=== PATIENT | female | born 1935 | race Caucasian/White ===

== ENCOUNTER 2024-05-08 19:13 | Inpatient (IN) | payer OTHER, SELFPAY ==
[2024-05-08] VITALS (7 sets, daily range): BP systolic 123–177; BP diastolic 85–106; BMI 18.8; BMI 17.4
[2024-05-08 16:51] LABS: % Basophils 0.5 % (0-2); % Eosinophils 0.2 % (0-6); % Immature Granulocytes 0.2 % (0-0.5); % Lymphocytes 13.4 % (20.5-51.1); % Monocytes 6.9 % (1.7-9.3); % Neutrophils 78.8 % (42.2-75.2); Absolute Lymphocytes 1.2 10^3/uL (1.2-3.4); Absolute Monocytes 0.6 10^3/uL (0.1-0.6); Absolute Neutrophils 6.9 10^3/uL (1.4-6.5); Hematocrit 37.7 % (37.0-47.0); Hemoglobin 12.2 g/dL (12.0-16.0); Mean Corp Hgb Conc. 32.4 g/dL (33.0-37.0); Mean Corpuscular Hgb 32.6 pg (27.0-31.0); Mean Corpuscular Volume 100.8 fL (81.0-99.0); Mean Platelet Volume 10.3 fL (7.4-10.4); Nucleated Red Blood Cells % 0 %; Platelet Count 301 10^3/uL (130-400); Red Blood Cell Count 3.74 10^6/uL (4.20-5.40); Red Cell Dist. Width 13.4 % (11.5-14.5); White Blood Cell Count 8.8 10^3/uL (4.8-10.8)
[2024-05-08 17:08] LABS: ALT (SGPT) 30 U/L (0-35); AST (SGOT) 38 U/L (14-36); Albumin 3.3 g/dl (3.5-5.0); Alkaline Phosphatase 475 U/L (38-126); Blood Urea Nitrogen 26 mg/dl (7-17); Calcium 8.7 mg/dl (8.4-10.2); Carbon Dioxide 28 mmol/L (22-30); Chloride 102 mmol/L (98-107); Estimated Creatinine Clearance 27 ml/min; Glucose 181 mg/dl (70-99); Potassium 3.6 mmol/L (3.5-5.1); Sodium 139 mmol/L (135-145); Total Bilirubin 1.3 mg/dl (0.2-1.3); Total Protein 7.1 g/dl (6.3-8.2); eGFR 48.94
--- NOTE | 2024-05-08 17:21 | ED.GENMED ---
History of Present Illness
<Nadia Connor PA-C - Last Filed: 05/08/24 19:20>
General
Chief Complaint: Abdominal Symptoms
Source: patient and family (Daughter at bedside)
Exam Limitations: none
Time Seen by Provider: 05/08/24 16:36
Nursing documentation reviewed up to this point in time: agreed with
History of Present Illness
History of Present Illness:
Patient is a 88-year-old female with history hypertension presenting to the emergency department for evaluation of exertional shortness of breath and lower leg swelling. Patient reports that over the past 2 weeks she has been very short of breath
even walking a few steps. She noticed that her feet have become swollen over the past few days. Patient denies any associated chest pain.
In addition�patient does report that she has been dealing with intermittent nausea for the past year. This is never accompanied by any vomiting, fever, abdominal pain. It seems worse in the morning when she wakes up and improves slowly throughout
the day. She has not noticed any correlation to eating.
Patient states that she felt very weak and lethargic today prompting her visit to the emergency department.
Patient denies any cough, back pain, urinary symptoms or other infectious symptoms.
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 She does have a pretty significant family history of congestive heart failure.
Review of Systems
<Nadia Connor PA-C - Last Filed: 05/08/24 19:20>
Review of Systems
Allergies reviewed?: Yes
All Other Systems: ROS reviewed and negative except as documented in HPI and ROS
Phy Exam
<Nadia Connor PA-C - Last Filed: 05/08/24 19:20>
Physical Exam
Physical Exam:
Vitals: Hypertensive, otherwise vital signs stable. Afebrile
General: Patient is well appearing, no acute distress
Skin: Warm and dry, no rashes or lesions. Scattered excoriations on bilateral lower legs
Head: Normocephalic, atraumatic
Eyes: Sclera nonicteric. EOMs intact. No nystagmus.
Throat: Protecting airway
Neck: Normal ROM, no cervical spine tenderness, no meningismus. No JVD
Cardiac: Regular rate and rhythm, no murmurs.
Pulm: Normal respiratory effort. Fine crackles at bases. No wheezing.
Abdomen: Abdomen soft. No abdominal tenderness. Negative Lama sign.
Extremities: 1+ pitting edema of bilateral feet. Palpable DP and PT pulses bilaterally.
Neuro: AAOx3. Grossly intact.
Psychiatric: Normal affect.
Course
<Nadia Connor PA-C - Last Filed: 05/08/24 19:20>
Orders/Labs/Results
Orders:
Orders
05/08/24 15:55
EKG [Electrocardiogram (*1)] Urgent
Reason for Study: Abdominal Pain
EKG- Treatment ONCE
05/08/24 16:42
CMP [Comprehensive Metabolic Panel] Urgent
Complete Blood Count/With Diff Urgent
NT-proBNP Urgent
Comment: ADD ON
Troponin I Urgent
05/08/24 17:20
Urinalysis Reflex To Culture Urgent
CR Chest - 2 Views Urgent
Comment:
Reason For Exam: exertional shortness of breath
05/08/24 17:35
Add On- LAB Urgent
Tests Added?: pro BNP
05/08/24 18:34
Furosemide [Lasix] 40 mg IV NOW STA
05/08/24 18:57
Admit/Transfer Patient As Directed
Co-Sign Provider:
Level of Care: Inpatient admission
Assign to:: Telemetry
Physician / Group: kb
Diagnosis: chf, afib
Reason for Telemetry: Arrhythmia
Date to Stop Telemetry: 05/11/24
Time to Stop Telemetry: 11:00
Reason for Hospitalization: chf, afib
Expected length of stay greater than two midnights?: Yes
ELOS- Estimated Length of Stay in days: 2
I certify the patient meets the requirements for IP care: Yes
Code Status As Directed
Resuscitation Status: Full Code
PRN Pain Medication Management As Directed
May give lesser potent ordered pain med per pt: Yes
preference::
Protocol:: Medication orders for pain may be administered in a
manner that supports deferring to patient preference
when the pt is:
- Requesting an ordered lesser potent pain medication.
Least to most potent pain medications are defined
as: acetaminophen < NSAID < tramadol < opioids
(morphine, oxycodone, hydromorphone).
- Requesting a lesser dose of the same medication IF
ORDERED.
- Requesting a less intrusive route of administration
if both routes are prescribed by the provider (PO <
IV).
05/08/24 18:58
Apixaban [Eliquis] 5 mg PO BID STA
05/08/24 19:45
Electrocardiogram (*1) Urgent
Reason for Study: Shortness of Breath
EKG- Treatment ONCE
Troponin I Urgent
05/11/24 11:00
DC Protocol for Telemetry ONCE
Abnormal Lab Results
05/08/24
16:42
RBC 3.74 L 10^6/uL
(4.20-5.40)
MCV 100.8 H fL
(81.0-99.0)
MCH 32.6 H pg
(27.0-31.0)
MCHC 32.4 L g/dL
(33.0-37.0)
Absolute Neuts (auto) 6.9 H 10^3/uL
(1.4-6.5)
Neutrophils % 78.8 H %
(42.2-75.2)
Lymphocytes % 13.4 L %
(20.5-51.1)
BUN 26 H mg/dl
(7-17)
Creatinine 1.1 H mg/dL
(0.6-1.0)
Glucose 181 H mg/dl
(70-99)
AST 38 H U/L
(14-36)
Alkaline Phosphatase 475 H U/L
(38-126)
Troponin I 0.038 H* ng/ml
Albumin 3.3 L g/dl
(3.5-5.0)
05/08/24 16:42
05/08/24 16:42
Vital Signs
Initial and Last Documented VS:
Initial Vital Signs
Temp Pulse Resp BP Pulse Ox
98.3 F 74 16 123/93 97
05/08/24 15:51 05/08/24 15:51 05/08/24 15:51 05/08/24 15:51 05/08/24 15:51
Last Documented Vital Signs
Temp Pulse Resp BP Pulse Ox
98.3 F 82 20 157/95 97
05/08/24 15:51 05/08/24 18:49 05/08/24 18:49 05/08/24 18:38 05/08/24 18:49
<Gregory Chavez, DO - Last Filed: 05/08/24 19:19>
Orders/Labs/Results
Orders:
Orders
05/08/24 15:55
EKG [Electrocardiogram (*1)] Urgent
Reason for Study: Abdominal Pain
EKG- Treatment ONCE
05/08/24 16:42
CMP [Comprehensive Metabolic Panel] Urgent
Complete Blood Count/With Diff Urgent
NT-proBNP Urgent
Comment: ADD ON
Troponin I Urgent
05/08/24 17:20
Urinalysis Reflex To Culture Urgent
CR Chest - 2 Views Urgent
Comment:
Reason For Exam: exertional shortness of breath
05/08/24 17:35
Add On- LAB Urgent
Tests Added?: pro BNP
05/08/24 18:34
Furosemide [Lasix] 40 mg IV NOW STA
05/08/24 18:57
Admit/Transfer Patient As Directed
Co-Sign Provider:
Level of Care: Inpatient admission
Assign to:: Telemetry
Physician / Group: kb
Diagnosis: chf, afib
Reason for Telemetry: Arrhythmia
Date to Stop Telemetry: 05/11/24
Time to Stop Telemetry: 11:00
Reason for Hospitalization: chf, afib
Expected length of stay greater than two midnights?: Yes
ELOS- Estimated Length of Stay in days: 2
I certify the patient meets the requirements for IP care: Yes
Code Status As Directed
Resuscitation Status: Full Code
PRN Pain Medication Management As Directed
May give lesser potent ordered pain med per pt: Yes
preference::
Protocol:: Medication orders for pain may be administered in a
manner that supports deferring to patient preference
when the pt is:
- Requesting an ordered lesser potent pain medication.
Least to most potent pain medications are defined
as: acetaminophen < NSAID < tramadol < opioids
(morphine, oxycodone, hydromorphone).
- Requesting a lesser dose of the same medication IF
ORDERED.
- Requesting a less intrusive route of administration
if both routes are prescribed by the provider (PO <
IV).
05/08/24 18:58
Apixaban [Eliquis] 5 mg PO BID STA
05/08/24 19:45
Electrocardiogram (*1) Urgent
Reason for Study: Shortness of Breath
EKG- Treatment ONCE
Troponin I Urgent
05/11/24 11:00
DC Protocol for Telemetry ONCE
Abnormal Lab Results
05/08/24
16:42
RBC 3.74 L 10^6/uL
(4.20-5.40)
MCV 100.8 H fL
(81.0-99.0)
MCH 32.6 H pg
(27.0-31.0)
MCHC 32.4 L g/dL
(33.0-37.0)
Absolute Neuts (auto) 6.9 H 10^3/uL
(1.4-6.5)
Neutrophils % 78.8 H %
(42.2-75.2)
Lymphocytes % 13.4 L %
(20.5-51.1)
BUN 26 H mg/dl
(7-17)
Creatinine 1.1 H mg/dL
(0.6-1.0)
Glucose 181 H mg/dl
(70-99)
AST 38 H U/L
(14-36)
Alkaline Phosphatase 475 H U/L
(38-126)
Troponin I 0.038 H* ng/ml
Albumin 3.3 L g/dl
(3.5-5.0)
05/08/24 16:42
05/08/24 16:42
Vital Signs
Initial and Last Documented VS:
Initial Vital Signs
Temp Pulse Resp BP Pulse Ox
98.3 F 74 16 123/93 97
05/08/24 15:51 05/08/24 15:51 05/08/24 15:51 05/08/24 15:51 05/08/24 15:51
Last Documented Vital Signs
Temp Pulse Resp BP Pulse Ox
98.3 F 82 20 157/95 97
05/08/24 15:51 05/08/24 18:49 05/08/24 18:49 05/08/24 18:38 05/08/24 18:49
<Nadia Connor PA-C - Last Filed: 05/08/24 19:20>
MDM/Problems Addressed
Differential Diagnosis Includes:
Not limited to: New onset CHF, dependent edema, ACS, biliary colic, medication side effect, CKD, UTI, etc.
MDM/Problems Addressed:
88-year-old female with history as documented presenting with exertional dyspnea and lower extremity swelling. No chest pain. She does have intermittent nausea over the past year although currently asymptomatic. No cough, fever, or other
infectious symptoms. Patient's vital signs are stable. She is not hypoxic. Physical exam as above. Patient well-appearing, in no apparent distress. Heart irregular rate, regular rhythm. There are fine crackles at lung bases bilaterally without
wheeze. She is saturating 97% on room air. Abdomen is soft and nontender. Negative Lama sign. She does have 1+ pitting edema bilateral lower extremities. Palpable DP pulses bilaterally. Patient does appear to be in a rate controlled atrial
fibrillation rhythm which is new for patient. Concern for possible new onset CHF. Will obtain labs, troponin, BNP. Will check chest x-ray. Unknown exact etiology for nausea although low suspicion for acute infectious process given benign
abdominal exam, no leukocytosis, patient is afebrile. Will continue to monitor.
Chronic conditions affecting care:
Hypertension
Acute Exacerbation and/or Progression of Chronic Illness:
Acutely hypertensive
<Nadia Connor PA-C - Last Filed: 05/08/24 19:20>
*Radiology
Radiology exam reviewed: preliminary read by ED provider (Mild pulmonary edema) and radiology read reviewed (Mild to moderate pulmonary edema and small bilateral pleural effusion)
*Pulse Oximetry
Patient hypoxic: no
*EKG
Interpreted by ED Provider?: Yes
EKG Intrepretation Date: 05/08/24
Interpretation: abnormal
Comparison EKG: no comparison EKG present
Heart Rate: 77
Rate: normal
Rhythm: a-fib
[place]: left axis deviation
Interval: normal QT interval
QRS Pattern: right bundle branch block
Ischemia: non-specific ST changes
*Refinery Operator Crude Unit Interpretation
Rate: normal
Interpretation: abnormal
Heart Rate: 80
Rhythm: a-fib
*Critical Care Note
Total Time (30-74mins, 75-104mins- exclusive of procedures): Not Applicable
<Nadia Connor PA-C - Last Filed: 05/08/24 19:20>
Patient Management
Discussion with other providers: Hospitalist
Escalation/DeEscalation of care consider admission/obs:
Admit for IV diuresis, cardiac echo, cardiology consult
<Nadia Connor PA-C - Last Filed: 05/08/24 19:20>
Update Note
Update Note:
Update: Labs reviewed. [place] [address]. Initial troponin is elevated to 0.038 which I suspect to be secondary to fluid overload�new onset A-fib. Low suspicion for ACS at this time. Will trend troponin. Chest
x-ray does show mild to moderate pulmonary edema with bilateral small pleural effusions. Findings consistent with new onset CHF. Will give 40 mg IV Lasix. Given new onset CHF along with new onset atrial fibrillation�patient will require admission
for IV diuresis, cardiac consult, further monitoring. Discussed with patient and daughter. Patient seen by attending physician. Patient agreeable to admission and accepted to hospital service in stable condition
ED Attending Note
<Nadia Connor PA-C - Last Filed: 05/08/24 19:20>
-
Portions of this chart may have been created with voice recognition software.� Occasional wrong word or��sound alike� substitutions may have occurred due to the inherent limitations of voice recognition software.
<Gregory Chavez DO - Last Filed: 05/08/24 19:19>
ED Attending Note
Patient seen and examined by attending physician: Yes
I performed the substantive portion of visit, reviewed & personally made and approve the management plan that is documented in note by myself or ANALISA.: Yes
ED Attending Note:
I evaluated patient at bedside patient she has bibasilar rales. She came in due to shortness of breath however currently is somewhat vague about the symptoms. Although she seemed to want a go home, she ultimately agreed to stay in the hospital as
she has new onset A-fib, new onset heart failure. She was given IV diuretic
Discharge Plan
Departure
Patient Disposition: Admit
Date of Disposition: 05/08/24
Time of Disposition: 18:35
Presentation/result/management discussed w/ accepting MD/DO: Hospitalist
Discharge Problem:
New onset of congestive heart failure, Exertional dyspnea, Atrial fibrillation, new onset
Referrals:
Julia Carpio CRNP [Family Provider] -
Discharge Date and Time
Print Language: FAROESE
[2024-05-08 17:22] LABS: Troponin I 0.038 ng/ml
[2024-05-08 18:35] LABS: NT-proBNP 20600 pg/ml
[2024-05-08] MEDS: LASIX 40 MG IV (18:38)
--- NOTE | 2024-05-08 19:00 | HPS.HSE ---
Family Physician
-
Family Physician: Julia Carpio
Chief Complaint
-
shortness of breath
History of Present Illness
88-year-old female past medical history of hypertension presenting to the emergency room with shortness of breath with exertion and lower extremity swelling. Over the past week she has been very short of breath even with a few steps. She notes
that her feet become swollen over the past few days. She denies chest pain. Denies dizziness or palpitations. She has increased lower extremity edema. 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
She has been having ongoing for the past year. She denies any vomiting or abdominal pain. This is worse in the morning when she wakes up and improves slowly throughout the day. She denies any correlation with eating. She has lost 50 pounds in
the past year. She denies change in bowel movements or blood in the stool.
She smokes 1 pack of cigarettes per day. She denies alcohol.
Multiple family members on both sides with heart disease.
Patient recently was found to have right shoulder fracture. He has seen orthopedics who recommended conservative treatment.
Medical History
Past Medical History
Past Medical History: Reports Other (hypertension )
Past Surgical History: Reports None
Social History
Tobacco: Smoker
Alcohol: None
Drug: None
Family History
Family History: Not pertinent
Allergies / Home Medications
Allergies reflects when Allergies were last updated in [facility].
Home Medications with original date entered in [facility]
Allergy/Medication List:
Allergies
Allergy/AdvReac Type Severity Reaction Status Date / Time
No Known Allergies Allergy Unverified 05/08/24 15:51
Review of Systems
-
History Source: Patient
A 12 point ROS was completed and negative except as noted: Yes
Constitutional: Reports No Symptoms
EENT: Reports No Symptoms
Respiratory: Reports See HPI
Cardiac: Reports See HPI
Abdomen/GI: Reports No Symptoms
: Reports No Symptoms
Musculoskeletal: Reports No Symptoms
Skin: Reports No Symptoms
Neurological: Reports No Symptoms
Endocrine: Reports No Symptoms
Hematologic/Lymphatic: Reports No Symptoms
Psych: Reports No Symptoms
Physical Exam
Vital Signs
Vital Signs
Temp Pulse Resp BP Pulse Ox
98.3 F 82 20 157/95 97
05/08/24 15:51 05/08/24 18:49 05/08/24 18:49 05/08/24 18:38 05/08/24 18:49
Physical Exam
General: Well Developed, Well Nourished and No Apparent Distress
HEENT: NormoCephalic, Moist mucous membranes and Atraumatic
Respiratory: Clear
Cardiac: S1/S2, Regular Rhythm and Peripheral Edema; No Murmur or Rub
GI: Soft, Non Tender, Non Distended and Normal Bowel Sounds; No Organomegaly
Rectal: Deferred by Provider
Musculoskeletal: No Clubbing, No Cyanosis and No Edema
Skin: No Rash
Neuro: Nonfocal/grossly intact
Laboratory Results
-
05/08/24 16:42
05/08/24 16:42
Laboratory Results
Total Bilirubin 1.3 mg/dl (0.2-1.3) 05/08/24 16:42
AST 38 U/L (14-36) H 05/08/24 16:42
ALT 30 U/L (0-35) 05/08/24 16:42
Alkaline Phosphatase 475 U/L (38-126) H 05/08/24 16:42
Troponin I 0.038 ng/ml H* 05/08/24 16:42
Data Reviewed
-
Lab Data: Labs Reviewed by me
Old Records: Reviewed
Impression/Plan
-
IMPRESSION:
PLAN:
# Acute CHF exacerbation
-Chest x-ray shows mild to moderate pulmonary interstitial edema with small bilateral pleural effusions
-Cardiac BNP 20,000
-Check I's and O's, daily weights
-Lasix 40 IV daily
-Check echo
-Cardiology consult
# New onset atrial fibrillation rate controlled
-[id number] score of 4
-Check TSH
-Start Eliquis
# Nonischemic myocardial injury secondary to CHF/A-fib
-EKG shows sinus rhythm with previous atrial complexes, left axis deviation, right bundle branch block
-trend troponin
# NILS versus CKD
-Monitor renal function with diuresis
# Chronic nausea with weight loss
-Concern for GI malignancy
-Outpatient follow-up with GI
# Recent right shoulder fracture
-Ortho following, conservative treatment
Active smoker
Essential hypertension
-Continue hydrochlorothiazide
Full code
DVT prophylaxis�Eliquis
Cardiac diet
[2024-05-08] MEDS: ELIQUIS 5 MG PO (19:28)
[2024-05-08 20:05] LABS: Troponin I 0.048 ng/ml
[2024-05-08] MEDS: MORPHINE SULFATE 0.5 MG IV (21:26)
[2024-05-08] MEDS: LIDOCAINE 4% PATCH 1 PATCH TOPICAL (21:27)
[2024-05-08 22:44] LABS: Urine Albumin 1+ (Neg - Trace); Urine Bilirubin Negative (Negative); Urine Character Clear (Clear); Urine Color Straw; Urine Glucose Negative (Negative); Urine Ketone Negative (Negative); Urine Leukocyte Negative (Negative); Urine Nitrite Negative (Negative); Urine Occult Blood Negative (Negative); Urine Urobilinogen Negative (Neg - 1+)
[2024-05-08 22:56] LABS: Urine Red Blood Cell 0-2 /HPF (0-2); Urine Squamous Cell 0-2 /LPF (Few); Urine White Cell 0-2 /HPF (0-5)
[2024-05-08] MEDS: ULTRAM 50 MG PO (23:29)
--- NOTE | 2024-05-09 00:53 | PTCARENOTE ---
Pt arrived to unit from ED via stretcher. Pt able to safely ambulate into room 337-1 with staff assist. Daughter at bedside during admission. Pt AAOx3, able to make needs known. C/O of back pain see MAR for administration. Oriented to unit, call
núñez within reach, plan of care ongoing.
[2024-05-09 03:44] VITALS: BP 123/76
[2024-05-09 03:52] LABS: Troponin I 0.052 ng/ml
[2024-05-09 06:00] VITALS: BMI 16.9
[2024-05-09 07:15] VITALS: BP 143/72
--- NOTE | 2024-05-09 07:44 | W.PN.HOSP.TC ---
Today's Communication/Plan
-
Continue IV diuresis for new CHF
Continue Eliquis
Monitor on telemetry
Daily weights, I's and O's
Assessment / Plan
Assessment / Plan
Physical Exam
General: Well Developed, Well Nourished and No Apparent Distress
HEENT: Normocephalic, Moist mucous membranes
Respiratory: Clear
Cardiac: S1/S2, Irregular Rhythm, Murmur (II/IV) and Peripheral Edema (pedal)
GI: Soft, Non Tender, Non Distended and Normal Bowel Sounds
Musculoskeletal: No Cyanosis and No Edema
Skin: Warm. Dry.
Neuro: Nonfocal/grossly intact
Assessment/Plan
# Acute Heart Failure with Reduced Ejection Fraction
# Systolic Murmur
-SOB is improving with diuresis
-Chest x-ray shows mild to moderate pulmonary interstitial edema with small bilateral pleural effusions
-Cardiac BNP 20,000
-Check I's and O's, daily weights
-Continue Lasix 40 mg IV BID
-Echo showed EF 35-40%, severe MR, and low flow, low gradient .
-Cardiology consult
-Start Toprol XL 25mg qHS
-Jardiance on discharge
-Future consideration for Aldactone and Entresto depending on renal function
# New paroxysmal atrial fibrillation
-[id number] score of 5 at least
-Checked TSH
-Continue new Eliquis 2.5 mg BID
-Continue beta remedios, monitor for bradycardia
#Hypokalemia
-Stop HCTZ
# Nonischemic myocardial injury secondary to CHF/A-fib
-EKG shows sinus rhythm with previous atrial complexes, left axis deviation, right bundle branch block
-trend troponin
# NILS versus CKD III
-Monitor renal function with diuresis
# Chronic nausea with weight loss
-Concern for GI malignancy
-Outpatient follow-up with GI
# Recent right shoulder fracture
-Ortho following, conservative treatment
# Active smoker
# Essential hypertension
-Stop HCTZ
-Continue Lisinopril
#Abdominal pain with nausea
#Chronically elevated AST, ALT, & GGT
-per report, patient refused outpatient testing by PCP
#PreDiabetes
Full code
DVT prophylaxis�Eliquis
Cardiac diet
Anticipated Discharge: > 48 hours
Subjective/Interval History
-
Date of Service: May 09, 2024
Patient was seen and examined. She reported feeling better than when she came in, and she denied chest pain, shortness of breath or any other complaints.
Objective Data
-
Labs:
Laboratory Results
05/09/24
06:00
WBC Pending
Hgb Pending
Hct Pending
Plt Count Pending
Sodium Pending
Potassium Pending
Chloride Pending
Carbon Dioxide Pending
BUN Pending
Creatinine Pending
Glucose Pending
Calcium Pending
Vital Signs:
Vital Signs
Temp Pulse Resp BP Pulse Ox
98.0 F 64 18 123/76 98
05/09/24 03:44 05/09/24 03:44 05/09/24 03:44 05/09/24 03:44 05/09/24 03:44
--- NOTE | 2024-05-09 08:22 | CON.CAR ---
Addendum entered and electronically signed by Darrius Bonds MD 05/09/24 11:41:
88 yo female with PMH of HTN, CKD3a is admitted with SOB/BUCK, edema. Exam with RRR, II/ systolic murmur at apex, trace LE edema. Cr 1.3. TnI peak 0.05.
Acute HF, type unknown. Continue IV lasix 40mg bid, with close monitoring of labs, tele. Check echo.
New A fib, paroxysmal. Slow response at times. Will not start AV destiny agent at this time. CHADS2-VASC = 5. Eliquis 2.5mg bid for OAC.
Original Note:
Consultation
Consultation Request
Date/Time Consultation Requested: 05/08/2024 22:20
Date/Time Consultation Performed: 05/09/2024 08:10
Requesting Provider: Dr. Gonzalez
Performing Provider: TITO Kraus for Dr. Bonds
Reason for Consultation: New atrial fibrillation, heart failure
Medical History
-
Chief Complaint: Shortness of breath
History of Present Illness:
Pamela Harrison is an 88 year old female with HTN, CKD stage III, HLD, current smoker, and OA who presented to the ER with a chief complaint of shortness of breath. She endorsed associated lower extremity swelling. She noticed her feet getting
swollen over the past several days. Her shortness of breath was worse with exertion and improved with rest. She does not weigh herself regularly. She also reported intermittent nausea for almost 1 year. She has chronically elevated AST, ALT, alk
phos, and GGT. She declined further workup with her PCP. She was given intravenous furosemide the emergency department. Her shortness of breath has vastly improved. She is having no chest pain.
Past Medical History
Past Medical History: HTN, Hypercholesterolemia and Renal Failure (CKD3)
Social History
Tobacco: Smoker
Living: With Family
Employment: Retired
Family History
Family History: Reviewed & Not Pertinent
Allergies / Home Medications
Allergy/AdvReac Type Severity Reaction Status Date / Time
No Known Allergies Allergy Unverified 05/08/24 15:51
�Medication �Instructions �Recorded �Confirmed �Type
lisinopril 20 1 tab PO DAILY 05/08/24 05/08/24 History
mg-hydrochlorothiazide 25 mg tablet
tramadol 50 mg tablet 50 mg PO Q6H PRN back pain 05/08/24 05/08/24 History
Review of Systems
-
History Source: Patient
All other systems: Negative unless noted
Constitutional: No Symptoms
EENT: No Symptoms
Respiratory: No Symptoms
Cardiac: No Symptoms
Abdomen/GI: No Symptoms
: No Symptoms
Musculoskeletal: No Symptoms
Skin: No Symptoms
Neurological: No Symptoms
Endocrine: No Symptoms
Hematologic/Lymphatic: No Symptoms
Physical Exam
Vital Signs
Temp Pulse Resp BP Pulse Ox
97.8 F 61 16 143/72 95
05/09/24 07:15 05/09/24 07:15 05/09/24 07:15 05/09/24 07:15 05/09/24 07:15
Lab Results
Troponin I 0.052 ng/ml H* 05/09/24 03:14
Rwy-N-Huwbqzkkdoy Pept Cancelled 05/08/24 17:20
Physical Exam
General: Well Developed, Well Nourished, No Apparent Distress and Comfortable
HEENT: Normocephalic and Anicteric
Respiratory: Non Labored Respirations
Cardiac: S1/S2, Irregular Rhythm, Murmur (II/IV) and Peripheral Edema (pedal)
Breast: Deferred by me
GI: Soft, Non Tender, Non Distended and Normal Bowel Sounds
Rectal: Deferred by Provider
Genito-urinary: No Costovertebral Tender
Musculoskeletal: No Clubbing and No Cyanosis
Skin: Warm
Neuro: AO x 3
Hematologic/Lymphatic: No Lymphadenopathy
Psych: Calm
Impression / Plan
-
BACKGROUND: 88F with HTN, HLD and current smoker presented with shortness of breath lower extremity edema. She was diagnosed with new heart failure. She was also found to be in atrial fibrillation.
Acute heart failure, presumed HFpEF
-Dyspnea on exertion significantly improved after diuresis in the emergency department
-Diuresis with furosemide 40 mg IV twice daily, this requires intensive monitoring given her CKD
-Echocardiogram
-Heart failure education
Paroxysmal atrial fibrillation, new diagnosis
-Rates 50-60bpm, hold AV destiny agents
-Oral Anticoagulation: Start apixaban 2.5mg BID (age > 80, weight < 60kg)
-[id number]: score at least 5 (Heart failure, HTN, age 75 or more, female gender)
Systolic murmur, echocardiogram
Hypertension, follow with diuresis
Abnormal troponin, likely nonischemic myocardial injury in the setting of acute heart failure
-Denies CP
-Trend to peak, currently 0.052
CKD Stage III, follow with diuresis
Abdominal pain with nausea
-Chronically elevated AST, ALT, & GGT -- refused outpatient testing by PCP
Current smoker, cessation recommended
Pre diabetes
Data Reviewed
-
EKG: Report Reviewed by me (Sinus with PACs, RBBB, rate 77; Sinus with PACS, RBBB, rate 74)
Radiology: Report Reviewed by me (CXR: Mild to moderate pulmonary interstitial edema with small bilateral pleural effusions. Cannot rule out component of underlying chronic interstitial lung disease.)
Labs: Labs Reviewed by me
Old Records: Reviewed
[2024-05-09 08:48] LABS: % Eosinophils 1.7 % (0-6); % Immature Granulocytes 0.3 % (0-0.5); % Lymphocytes 32.3 % (20.5-51.1); % Monocytes 8.7 % (1.7-9.3); Absolute Basophils 0.1 10^3/uL (0-0.2); Absolute Eosinophils 0.1 10^3/uL (0-0.7); Absolute Lymphocytes 2.2 10^3/uL (1.2-3.4); Absolute Monocytes 0.6 10^3/uL (0.1-0.6); Absolute Neutrophils 3.9 10^3/uL (1.4-6.5); Hematocrit 34.1 % (37.0-47.0); Hemoglobin 11.3 g/dL (12.0-16.0); Mean Corp Hgb Conc. 33.1 g/dL (33.0-37.0); Mean Corpuscular Hgb 32.9 pg (27.0-31.0); Mean Corpuscular Volume 99.4 fL (81.0-99.0); Mean Platelet Volume 10.2 fL (7.4-10.4); Nucleated Red Blood Cells % 0 %; Platelet Count 235 10^3/uL (130-400); Red Blood Cell Count 3.43 10^6/uL (4.20-5.40); Red Cell Dist. Width 13.3 % (11.5-14.5); White Blood Cell Count 6.9 10^3/uL (4.8-10.8)
[2024-05-09 09:12] LABS: Troponin I 0.045 ng/ml
[2024-05-09 09:29] LABS: Blood Urea Nitrogen 28 mg/dl (7-17); Calcium 8.5 mg/dl (8.4-10.2); Carbon Dioxide 29 mmol/L (22-30); Chloride 102 mmol/L (98-107); Estimated Creatinine Clearance 22 ml/min; Glucose 109 mg/dl (70-99); Potassium 3.3 mmol/L (3.5-5.1); Sodium 138 mmol/L (135-145); eGFR 40.05
[2024-05-09] MEDS: LASIX 40 MG IV ×2 (09:30→15:24)
[2024-05-09] MEDS: LIDOCAINE 4% PATCH TOPICAL (09:33)
[2024-05-09 09:52] LABS: TSH Reflex To Free T4 1.77 uIU/ml (0.47-4.68)
[2024-05-09] MEDS: KCL 40 MEQ PO (09:56)
[2024-05-09] MEDS: ZESTRIL 10 MG PO (09:57)
[2024-05-09] MEDS: ELIQUIS 2.5 MG PO ×2 (09:58→19:58)
[2024-05-09 14:34] VITALS: BMI 16.9
[2024-05-09 15:15] VITALS: BP 149/73
--- NOTE | 2024-05-09 16:08 | W.PN.UPDATE ---
Update Note
Progress Note Update
Echo shows EF 35-40%, severe MR, and low flow, low gradient . Discussed with patient and family: patient wants med mgmt only.
Will add Toprol XL 25mg qHS: trend tele for bradycardia.
Will add jardiance at d/c (copay $47 monthly).
Continue lisinopril (home med). Stop HCTZ.
Trend renal function with diuresis: plan for lasix 40mg daily on d/c once euvolemic.
Can assess for aldactone and entresto based on renal function.
--- NOTE | 2024-05-09 16:40 | CM ---
Alert awake oriented patient who lives with alone in a 1 story home with 1 step to enter .She is independent in driving and in all activities of daily living.Offered VN she declined.Her dgt Lashonda is supportive. requested med phelps . Jardiance is
$47.00 /mon. aware.
No adaptive devices
Never had VN/SNF
Pharmacy [facility]
PCP Dr Carpio
PLAN Home no needs
[2024-05-09 19:00] VITALS: BP 164/74
[2024-05-09 19:06] LABS: Blood Urea Nitrogen 31 mg/dl (7-17); Calcium 8.4 mg/dl (8.4-10.2); Carbon Dioxide 28 mmol/L (22-30); Chloride 98 mmol/L (98-107); Estimated Creatinine Clearance 20 ml/min; Glucose 140 mg/dl (70-99); Magnesium 1.4 mg/dl (1.6-2.3); Potassium 3.7 mmol/L (3.5-5.1); Sodium 137 mmol/L (135-145); eGFR 36.64
[2024-05-09] MEDS: TOPROL XL 25 MG PO (21:18)
[2024-05-09] MEDS: ULTRAM 50 MG PO (22:10)
[2024-05-09 23:00] VITALS: BP 147/73
[2024-05-10 03:00] VITALS: BP 132/71
[2024-05-10 06:00] VITALS: BMI 16.9
[2024-05-10 06:25] LABS: Hematocrit 36.3 % (37.0-47.0); Hemoglobin 11.7 g/dL (12.0-16.0); Mean Corp Hgb Conc. 32.2 g/dL (33.0-37.0); Mean Corpuscular Hgb 32.2 pg (27.0-31.0); Mean Platelet Volume 10.6 fL (7.4-10.4); Platelet Count 239 10^3/uL (130-400); Red Blood Cell Count 3.63 10^6/uL (4.20-5.40); Red Cell Dist. Width 13.2 % (11.5-14.5); White Blood Cell Count 7.6 10^3/uL (4.8-10.8)
[2024-05-10 06:49] LABS: ALT (SGPT) 28 U/L (0-35); AST (SGOT) 36 U/L (14-36); Albumin 3.1 g/dl (3.5-5.0); Alkaline Phosphatase 413 U/L (38-126); Blood Urea Nitrogen 32 mg/dl (7-17); Calcium 8.6 mg/dl (8.4-10.2); Carbon Dioxide 30 mmol/L (22-30); Chloride 98 mmol/L (98-107); Estimated Creatinine Clearance 20 ml/min; Glucose 113 mg/dl (70-99); Magnesium 1.5 mg/dl (1.6-2.3); Potassium 3.9 mmol/L (3.5-5.1); Sodium 139 mmol/L (135-145); Total Protein 6.9 g/dl (6.3-8.2); eGFR 36.64
[2024-05-10 07:40] VITALS: BP 175/80
[2024-05-10] MEDS: ZESTRIL 10 MG PO (08:04)
[2024-05-10] MEDS: ELIQUIS 2.5 MG PO ×2 (08:05→19:48)
[2024-05-10] MEDS: LASIX 40 MG IV (08:08)
[2024-05-10] MEDS: LIDOCAINE 4% PATCH TOPICAL (08:10)
--- NOTE | 2024-05-10 08:59 | W.PN.CD ---
Today's Communication / Plan
-
-EF 35-40% on echo yesterday with severe MR and low gradient severe aortic stenosis.
-Conservative cardiac management--patient does not want any invasive procedures.
-Patient was not on Lasix at home; can discharge on Lasix 40 mg daily.
-Will decrease Toprol-XL to 12.5 mg once daily to avoid any significant bradycardia.
-No further cardiac recommendations at this time; outpatient follow-up with Cardiology.
Impression / Plan
-
BACKGROUND: 88F with HTN, HLD and current smoker presented with shortness of breath lower extremity edema. She was diagnosed with new heart failure. She was also found to be in atrial fibrillation.
Acute HFrEF (EF 35-40 %)/severe /severe MR:
-EF 35-40% on echo yesterday with severe MR and low gradient severe aortic stenosis.
-Conservative cardiac management--patient does not want any invasive procedures.
-Patient was not on Lasix at home; can discharge on Lasix 40 mg daily.
-Will decrease Toprol-XL to 12.5 mg once daily to avoid any significant bradycardia.
-Further GDMT limited by renal dysfunction.
Paroxysmal atrial fibrillation, new diagnosis
-Will decrease Toprol-XL to 12.5 mg once daily to avoid any significant bradycardia.
-Oral Anticoagulation: Start apixaban 2.5mg BID (age > 80, weight < 60kg)
-[id number]: score at least 5 (Heart failure, HTN, age 75 or more, female gender)
Hypertension -fairly controlled.
Abnormal troponin, likely nonischemic myocardial injury in the setting of acute heart failure/CKD.
CKD Stage III, follow with diuresis
Abdominal pain with nausea
-Chronically elevated AST, ALT, & GGT -- refused outpatient testing by PCP
Current smoker, cessation recommended
Pre diabetes
Physical Exam
Vital Signs/Labs
Vital Signs
Temp Pulse Resp BP Pulse Ox
98 F 63 20 175/80 97
05/10/24 07:40 05/10/24 08:04 05/10/24 07:40 05/10/24 08:04 05/10/24 07:40
05/09/24 05/10/24 05/11/24
06:59 06:59 06:59
Actual Weight 44.679 kg 44.565 kg
05/10/24 05:48
05/10/24 05:48
Magnesium 1.5 mg/dl (1.6-2.3) L 05/10/24 05:48
05/08/24 05/08/24
16:42 17:20
Hgp-U-Vaqtabtnpwo Pept Cancelled
LAB Results
05/08/24 05/08/24 05/09/24
16:42 19:31 02:51
Troponin I 0.038 H* 0.048 H* D Cancelled
05/09/24 05/09/24
03:14 08:34
Troponin I 0.052 H* 0.045 H*
Physical Exam
Constitutional: No acute distress and Comfortable
EENT: Anicteric
Cardiovascular: Rhythm & rate is regular, Pedal edema present (trace), Systolic murmur present (3/6) and S1S2 is normal
Respiratory: Respiratory effort normal and Lungs clear to auscul.
GI: Soft
Neuro/Psych: AO x 3
Other: Skin (warm. dry)
Data Reviewed
-
Date of Service: May 10, 2024
Labs: Labs Reviewed by me
[2024-05-10] MEDS: MAGNESIUM SULFATE 50 IV (09:29)
--- NOTE | 2024-05-10 09:52 | W.HF.CON ---
Heart Failure
- LV Function
Left ventricular function study result: LV Ejection fraction 36-40%
Ejection Fraction Percentage: 35-40
- ARNI
Patient already on ARNI: No
Heart Failure ARNI Contraindication: Mod/Severe Aortic Stenosis, Worsening Renal Function
- ACEI/ARB
Patient already on ACEI/ARB: Yes
- Beta Karen
Patient already on Evidence Based Beta Karen: Yes
- Mineralocorticord Receptor Antagonist
Patient already on MRA: No
Heart Failure MRA Contraindication: Acute Renal Insufficiency
- SGLT-2 Inhibitor
Patient already on SGLT-2 Inhibitor: No
Heart Failure SGLT-2 Inhibitor Contraindication: Patient Refusal
- Afib Anticoagulation
Patient already on Anticoagulation for Afib: Yes
- NYHA CHF Classification
NYHA CHF Classification Level: Class III - Symptoms w/ min exertion, interferes w/ nml daily activity
- ACC/AHA Stage
ACC/AHA Stage: Stage C: Symptomatic Heart Failure
--- NOTE | 2024-05-10 11:16 | PN.CDI ---
CDI
- -
CDI:
Physician Documentation Request
Admit Date: 05/08/24 19:13
Dear Doctor Bibi,
Patient admitted with acute systolic CHF.
05/09 Nutrition note, 'During visit RD able to visualize protrusion of cervical, some temporal wasting,fat loss over orbital cliff, apparent ribs. With observed muscle and fat wasting and intakes of < 75% estimated needs > 1 month pt meets AND/ASPEN
criteria for moderate protein calorie malnutrition of chronic illness.
Please provide in your note the diagnosis associated with the above findings and your assessment:
Moderate protein calorie malnutrition
Mild protein calorie malnutrition
Other (please specify)
Wall Criteria ([facility] 2017)
2 or more criteria must be present for either
non severe or severe malnutrition
Note that the criteria differs related to the
presence of an acute or chronic illness
Chronic Illness
Energy Intake Non Severe: <75% for >1 month
Severe: <75% for >1 month
Weight Loss Non Severe: 5% over 1 month
7.5% over 3 months
10% over 6 months
20% over 1 year
Severe: >5% over 1 month
>7.5% over 3 months
>10% over 6 months
>20% over 1 year
Body Fat Non Severe: Mild Loss
Severe: Severe Loss
Muscle Mass Non Severe: Mild Loss
Severe: Severe Loss
Fluid Accumulation Non Severe: Mild Accumulation
Severe: Moderate to severe
accumulation
Reduced Associate Artistic Director Strength Non Severe: N/A
Severe: Measurably reduced
Use of terms such as suspected, likely, concern for, or probable (associated with a specific diagnosis that is being evaluated, monitored, or treated as if it exists) are acceptable and can be coded in the inpatient setting, when documented at the
time of discharge.
Thank you,
Mirian NUNEZN,RN,CCDS
CDI Specialist
Available via [place] text
Please use your independent medical judgment in providing your response.
[2024-05-10 11:26] VITALS: BP 153/58
[2024-05-10 15:48] VITALS: BP 146/69
--- NOTE | 2024-05-10 16:43 | W.PN.HOSP.TC ---
Today's Communication/Plan
-
Magnesium still low, another dose of IV supplementation today
Start PO magnesium
PT/OT
Likely discharge tomorrow
Assessment / Plan
Assessment / Plan
Physical Exam
General: Not in acute distress
HEENT: Normocephalic, Moist mucous membranes
Respiratory: Clear to Auscultation Bilaterally
Cardiac: S1/S2, Irregular Rhythm, Systolic Murmur (II/IV) and Peripheral Edema (pedal)
GI: Soft, Non Tender, Non Distended and Normal Bowel Sounds
Musculoskeletal: No Cyanosis and No Edema
Skin: Warm. Dry.
Neuro: Nonfocal/grossly intact
Assessment/Plan
# Acute Heart Failure with Reduced Ejection Fraction
# Systolic Murmur
-SOB is improving with diuresis
-Chest x-ray shows mild to moderate pulmonary interstitial edema with small bilateral pleural effusions
-Cardiac BNP 20,000
-Check I's and O's, daily weights
-Continue Lasix 40 mg IV BID -- can discharge on Lasix 40 mg daily (patient was not on Lasix at home)
-Echo showed EF 35-40%, severe MR, and low flow, low gradient .
-Cardiology consult
-Per cardiology, conservative cardiac management--patient does not want any invasive procedures.
-Started new Toprol XL 25mg qHS but decreased to 12.5 mg once daily to avoid any significant bradycardia
-Jardiance on discharge
-Future consideration for Aldactone and Entresto depending on renal function
# New paroxysmal atrial fibrillation
-[id number] score of 5 at least
-Checked TSH
-Continue new Eliquis 2.5 mg BID
-Continue beta remedios, monitor for bradycardia
#Hypokalemia
-Stop HCTZ
#Hypomagnesemia
-IV replacement ordered with some improvement
-Start oral Magnesium supplementation
# Nonischemic myocardial injury secondary to CHF/A-fib
-EKG shows sinus rhythm with previous atrial complexes, left axis deviation, right bundle branch block
-trend troponin
# NILS versus CKD III
-Monitor renal function with diuresis
# Chronic nausea with weight loss
-Concern for GI malignancy
-Outpatient follow-up with GI
# Recent right shoulder fracture
-Ortho following, conservative treatment
# Active smoker
# Essential hypertension
-Stop HCTZ
-Continue Lisinopril
#Abdominal pain with nausea
#Chronically elevated AST, ALT, & GGT
-per report, patient refused outpatient testing by PCP
#PreDiabetes
#Moderate protein calorie malnutrition
Code Statu-Full code
DVT prophylaxis�Eliquis
Cardiac diet
Anticipated Discharge: Within 24 hours
Subjective/Interval History
-
Date of Service: May 10, 2024
Patient was seen and examined. She denied any chest pain, shortness of breath, leg swelling or leg pain.
Objective Data
-
Labs:
Laboratory Results
05/10/24
05:48
WBC 7.6
Hgb 11.7 L
Hct 36.3 L
Plt Count 239
Sodium 139
Potassium 3.9
Chloride 98
Carbon Dioxide 30
BUN 32 H
Creatinine 1.4 H
Glucose 113 H
Calcium 8.6
Total Bilirubin 1.0
AST 36
ALT 28
Alkaline Phosphatase 413 H
Vital Signs:
Vital Signs
Temp Pulse Resp BP Pulse Ox
98.7 F 53 16 146/69 96
05/10/24 15:48 05/10/24 15:48 05/10/24 15:48 05/10/24 15:48 05/10/24 15:48
I&O
05/09/24 05/10/24 05/11/24
06:59 06:59 06:59
Intake Total 780 / 780
Output Total 950 / 950
Balance -170 / -170
[2024-05-10 19:00] VITALS: BP 138/78
[2024-05-10] MEDS: ULTRAM 50 MG PO (19:44)
[2024-05-10 23:00] VITALS: BP 141/70
[2024-05-11 03:00] VITALS: BP 161/91
[2024-05-11 05:41] LABS: Hematocrit 34.7 % (37.0-47.0); Hemoglobin 11.5 g/dL (12.0-16.0); Mean Corp Hgb Conc. 33.1 g/dL (33.0-37.0); Mean Corpuscular Hgb 32.8 pg (27.0-31.0); Mean Corpuscular Volume 98.9 fL (81.0-99.0); Mean Platelet Volume 10.7 fL (7.4-10.4); Platelet Count 235 10^3/uL (130-400); Red Blood Cell Count 3.51 10^6/uL (4.20-5.40); Red Cell Dist. Width 13.1 % (11.5-14.5); White Blood Cell Count 7.2 10^3/uL (4.8-10.8)
[2024-05-11 06:00] VITALS: BMI 16.7
[2024-05-11 06:06] LABS: ALT (SGPT) 28 U/L (0-35); AST (SGOT) 38 U/L (14-36); Alkaline Phosphatase 448 U/L (38-126); Blood Urea Nitrogen 32 mg/dl (7-17); Calcium 8.4 mg/dl (8.4-10.2); Carbon Dioxide 30 mmol/L (22-30); Chloride 98 mmol/L (98-107); Estimated Creatinine Clearance 22 ml/min; Glucose 117 mg/dl (70-99); Magnesium 1.8 mg/dl (1.6-2.3); Potassium 3.6 mmol/L (3.5-5.1); Sodium 138 mmol/L (135-145); Total Bilirubin 1.1 mg/dl (0.2-1.3); Total Protein 6.7 g/dl (6.3-8.2); eGFR 40.05
[2024-05-11 07:15] VITALS: BP 163/76
--- NOTE | 2024-05-11 07:40 | W.PN.HOSP.TC ---
Today's Communication/Plan
-
Discharge today
Assessment / Plan
Assessment / Plan
Physical Exam
General: Not in acute distress
HEENT: Normocephalic, Moist mucous membranes
Respiratory: Clear to Auscultation Bilaterally
Cardiac: S1/S2, Irregular Rhythm, Systolic Murmur (II/IV) and Peripheral Edema (pedal)
GI: Soft, Non Tender, Non Distended and Normal Bowel Sounds
Musculoskeletal: No Cyanosis and No Edema
Skin: Warm. Dry.
Neuro: Nonfocal/grossly intact
Assessment/Plan
# Acute Heart Failure with Reduced Ejection Fraction
# Systolic Murmur
-SOB is improved significantly with diuresis
-Chest x-ray showed as per radiologist's report mild to moderate pulmonary interstitial edema with small bilateral pleural effusions
-Cardiac BNP 20,000
-Check I's and O's, daily weights
-Continue Lasix 40 mg IV BID -- can discharge on Lasix 40 mg daily (patient was not on Lasix at home)
-Echo showed EF 35-40%, severe MR, and low flow, low gradient .
-Cardiology consult, appreciate their evaluation and recommendations
-Per cardiology, conservative cardiac management--patient does not want any invasive procedures.
-Started new Toprol XL 25mg qHS but decreased to 12.5 mg once daily to avoid any significant bradycardia
-Jardiance on discharge
-Future consideration for Aldactone and Entresto depending on renal function
# New paroxysmal atrial fibrillation
-[id number] score of 5 at least
-Checked TSH
-Continue new Eliquis 2.5 mg BID
-Continue beta remedios, monitor for bradycardia
#Hypokalemia
-Stop HCTZ
-Continue Lisinopril
#Hypomagnesemia
-IV replacement ordered with some improvement
-Start oral Magnesium supplementation on discharge
# Nonischemic myocardial injury secondary to CHF/A-fib
-EKG shows sinus rhythm with previous atrial complexes, left axis deviation, right bundle branch block
-Troponins elevated but no significant increase
# NILS versus CKD III
-Monitor renal function with diuresis
-Recheck BMP and Mg outpatient
# Chronic nausea with weight loss
-Concern for GI malignancy
-Outpatient follow-up with GI
# Recent right shoulder fracture
-Ortho following, conservative treatment
# Active smoker
# Essential hypertension
-Stop HCTZ
-Continue Lisinopril
#Abdominal pain with nausea
#Chronically elevated AST, ALT, & GGT
-per report, patient refused outpatient testing by PCP
#PreDiabetes
#Moderate protein calorie malnutrition
Code Statu-Full code
DVT prophylaxis�Eliquis
Cardiac diet
More than 30 minutes spent in discharge including
Final examination of the patient
Summarizing hospital stay
Instructions for continuing care to all relevant caregivers
Preparation of discharge records, prescriptions, and referral forms
Total time spent (in minutes): 36
Anticipated Discharge: Today
Subjective/Interval History
-
Date of Service: May 11, 2024
Patient was seen and examined. She denied any chest pain, shortness of breath, or any other symptoms or complaints.
Objective Data
-
Labs:
Laboratory Results
05/11/24
05:22
WBC 7.2
Hgb 11.5 L
Hct 34.7 L
Plt Count 235
Sodium 138
Potassium 3.6
Chloride 98
Carbon Dioxide 30
BUN 32 H
Creatinine 1.3 H
Glucose 117 H
Calcium 8.4
Total Bilirubin 1.1
AST 38 H
ALT 28
Alkaline Phosphatase 448 H
Vital Signs:
Vital Signs
Temp Pulse Resp BP Pulse Ox
98.0 F 57 16 163/76 98
05/11/24 07:15 05/11/24 07:15 05/11/24 07:15 05/11/24 07:15 05/11/24 07:15
I&O
05/10/24 05/11/24 05/12/24
06:59 06:59 06:59
Intake Total 780 / 780 600 / 600
Output Total 950 / 950 1000 / 1000
Balance -170 / -170 -400 / -400
[2024-05-11] MEDS: MAGNESIUM OXIDE 500 MG PO (07:57)
[2024-05-11] MEDS: LASIX 40 MG PO (07:57)
[2024-05-11] MEDS: ELIQUIS 2.5 MG PO (07:57)
[2024-05-11] MEDS: TOPROL XL 12.5 MG PO (07:57)
[2024-05-11] MEDS: ZESTRIL 10 MG PO (07:57)
[2024-05-11] MEDS: LIDOCAINE 4% PATCH TOPICAL (07:58)
[2024-05-11 10:39] VITALS: BP 109/85; PULSE 51; O2SAT 97
[2024-05-11 10:43] VITALS: BP 109/85; PULSE 51; O2SAT 97
[2024-05-11 11:01] VITALS: BP 109/85
--- NOTE | 2024-05-11 12:23 | CM ---
MD entered order for discharge.
Spoke with pt she said she was ready for discagre and agrees with IMM.
She said her dgt Lashonda will drive her home.'
Offered Vn she declined need.
PLAN Home no needs
== END 2024-05-11 14:13 | disposition home or self-care (01) | DRG 291 ==
LOC: 3 WEST ACU 19:13
PROVIDERS: Physician Assistant; ADMITTING PHYSICIAN Hospitalist; ATTENDING PHYSICIAN Hospitalist; CONSULT PHYSICIAN Internal Medicine; EMERGENCY PHYSICIAN Emergency Medicine; FAMILY PHYSICIAN Nurse Practitioner
DX: I13.0 Hypertensive heart and chronic kidney disease with heart failure and stage 1 through stage 4 chronic kidney disease, or unspecified chronic kidney disease (principal); I50.21 Acute systolic (congestive) heart failure; E44.0 Moderate protein-calorie malnutrition; Z68.1 Body mass index [BMI] 19.9 or less, adult; N17.9 Acute kidney failure, unspecified; R01.1 Cardiac murmur, unspecified; F17.210 Nicotine dependence, cigarettes, uncomplicated; N18.30 Chronic kidney disease, stage 3 unspecified; I5A Non-ischemic myocardial injury (non-traumatic); I45.10 Unspecified right bundle-branch block; R11.0 Nausea; E78.00 Pure hypercholesterolemia, unspecified; Z82.49 Family history of ischemic heart disease and other diseases of the circulatory system; I48.0 Paroxysmal atrial fibrillation; E87.6 Hypokalemia; E83.42 Hypomagnesemia; R73.03 Prediabetes
CPT/HCPCS: 71046; 80048; 80053; 81003; 81015; 83735; 83880; 84443; 84484; 85025; 85027; 93005; 93306; 96374; 97162; 97166; 99285; 99406

== ENCOUNTER 2024-11-07 22:22 | Inpatient (IN) | payer OTHER, SELFPAY ==
[2024-11-07] VITALS (12 sets, daily range): BP systolic 117–167; BP diastolic 44–73; BMI 17.9
[2024-11-07 15:19] LABS: Hematocrit 33.7 % (37.0-47.0); Hemoglobin 10.6 g/dL (12.0-16.0); Mean Corp Hgb Conc. 31.5 g/dL (33.0-37.0); Mean Corpuscular Volume 82.6 fL (81.0-99.0); Platelet Count 322 10^3/uL (130-400); Red Blood Cell Count 4.08 10^6/uL (4.20-5.40); Red Cell Dist. Width 17.3 % (11.5-14.5); White Blood Cell Count 27.1 10^3/uL (4.8-10.8)
[2024-11-07 15:35] LABS: AST (SGOT) 27 U/L (14-36); Albumin 3.2 g/dl (3.5-5.0); Alkaline Phosphatase 278 U/L (38-126); Blood Urea Nitrogen 41 mg/dl (7-17); Calcium 8.7 mg/dl (8.4-10.2); Carbon Dioxide 24 mmol/L (22-30); Chloride 102 mmol/L (98-107); Glucose 185 mg/dl (70-99); Potassium 4.5 mmol/L (3.5-5.1); Sodium 137 mmol/L (135-145); Total Bilirubin 2.7 mg/dl (0.2-1.3); eGFR 36.41
[2024-11-07 15:45] LABS: NT-proBNP > 27000 pg/ml; Troponin I 0.099 ng/ml
[2024-11-07 16:17] LABS: ALT (SGPT) < 30 U/L (0-35)
[2024-11-07 16:18] LABS: % Basophils 0.3 % (0-2); % Immature Granulocytes 0.6 % (0-0.5); % Lymphocytes 3.7 % (20.5-51.1); % Monocytes 6.2 % (1.7-9.3); % Neutrophils 89.2 % (42.2-75.2); Absolute Basophils 0.1 10^3/uL (0-0.2); Absolute Immature Granulocytes 0.2 10^3/uL (0-0.05); Absolute Monocytes 1.7 10^3/uL (0.1-0.6); Absolute Neutrophils 24.2 10^3/uL (1.4-6.5); Nucleated Red Blood Cells % 0 %
--- NOTE | 2024-11-07 16:54 | ED.GENMED ---
History of Present Illness
General
Chief Complaint: Back Pain
Source: patient and family
Exam Limitations: none
Time Seen by Provider: 11/07/24 16:10
Nursing documentation reviewed up to this point in time: agreed with
History of Present Illness
History of Present Illness:
Patient with history of paroxysmal atrial fibrillation on Eliquis and congestive heart failure on Lasix, presents to ED secondary to worsening shortness of breath, especially with exertion over the past 1 week, especially over the past 48 hours.
Patient does report chronic cough, appears to be worse in the morning, but improves during the day. Denies fever or chills. Denies chest pain. Denies vomiting or diarrhea. However, patient does also report abdominal pain with distention noted
over the past 2 days, with lack of bowel movement. Denies recent change in medications or diet. Patient was evaluated by her informatics nurse specialist 1 week ago, during which time carvedilol was discontinued and Lasix was increased. Denies sick contact.
Denies recent travel. Denies leg pain. Patient also reports chronic low back pain, which feels better today.
Review of Systems
Review of Systems
Allergies reviewed?: Yes
All Other Systems: ROS reviewed and negative except as documented in HPI and ROS
Constitutional: Reports no symptoms; Denies fever
Respiratory: Reports cough and trouble breathing
Cardiac: Reports no symptoms; Denies chest pain
ABD/GI: Reports abdominal pain; Denies vomiting or diarrhea
: Reports no symptoms
Musculoskeletal: Reports no symptoms
Skin: Reports no symptoms
Neurological: Reports no symptoms
Phy Exam
Physical Exam
Physical Exam:
Physical Exam
General: mild distress, ill appearing. afebrile
Head: nc/at. eomi
Neck: supple. no meningeal signs.
Heart: irregularly irregular, systolic ejection murmur.
Lungs: no acute respiratory distress. clear bilaterally
Abdomen: normal bowel sounds. diffuse tenderness with mild distention
Neuro: alert and oriented x 3. no focal neurological deficits
Skin: no rash
Psychiatric: well kept. interactive and cooperative
Extremities: LE b/l edema with discoloration, chronic per patient/family. no calf tenderness.
Course
Orders/Labs/Results
Orders:
Orders
11/07/24 Breakfast
NPO
Allow oral meds: No
Allow clear liquids: No
NPO with Ice Chips: Yes
11/07/24 15:03
Electrocardiogram (*1) Urgent
Reason for Study: Shortness of Breath
EKG- Treatment ONCE
11/07/24 15:07
Complete Blood Count/With Diff Urgent
Comprehensive Metabolic Panel Urgent
NT-proBNP Urgent
Troponin I Urgent
11/07/24 16:49
CR Obstruct Series W/pa Chest Urgent
Comment:
Reason For Exam: abd pain w distention, along w sob
11/07/24 17:51
CT Abd/pel W Iv And Oral Contr Urgent
Comment:
Reason For Exam: abd pain w distention
Iohexol [Omnipaque] See Protocol PO NOW STA
11/07/24 21:30
Piperacillin/Tazo 3.375 Gram [Zosyn] 3.375 gram in 50 ml IV NOW
11/07/24 21:41
Lactate Level [Lactic Acid] Urgent
Blood Culture Urgent
YANI Source: Blood/Venous
Specimen Description:
11/07/24 21:44
Admit/Transfer Patient As Directed
Co-Sign Provider:
Level of Care: Inpatient admission
Assign to:: Telemetry
Physician / Group: Rashel
Diagnosis: Small Bowel Obstruction; Heart Failure
Reason for Telemetry: Acute Heart Failure
Date to Stop Telemetry: 11/10/24
Time to Stop Telemetry: 11:00
Reason for Hospitalization: IV diuretics, NG tube
Expected length of stay greater than two midnights?: Yes
ELOS- Estimated Length of Stay in days: 4
I certify the patient meets the requirements for IP care: Yes
Gastrointestinal Tubes As Directed
Type: [place] sump
To suction?: Yes
Type of suction: Low intermittent
Irrigate tube?: No
PRN Pain Medication Management As Directed
May give lesser potent ordered pain med per pt: Yes
preference::
Protocol:: Medication orders for pain may be administered in a
manner that supports deferring to patient preference
when the pt is:
- Requesting an ordered lesser potent pain medication.
Least to most potent pain medications are defined
as: acetaminophen < NSAID < tramadol < opioids
(morphine, oxycodone, hydromorphone).
- Requesting a lesser dose of the same medication IF
ORDERED.
- Requesting a less intrusive route of administration
if both routes are prescribed by the provider (PO <
IV).
11/07/24 21:45
Code Status As Directed
Resuscitation Status: Do not resuscitate
Reached after discussion with pt or family/Healthcare POA: Yes
DNR Bracelet Application ONCE
11/07/24 21:51
Furosemide [Lasix] 40 mg IV NOW STA
11/07/24 21:57
Portable Chest Xray [CR Chest Portable - 1 View] Urgent
Comment:
Reason For Exam: NG TUBE INSERTION
Reason Study Needs to be Portable: Unable to Transport
11/07/24 22:00
Flush (0.9% Sodium Chloride) [Flush (Nss)] See Dose Instructions IV PER PROTOCOL
11/07/24 22:45
Troponin I Q8H
Blood Culture Urgent
YANI Source: Blood/Venous
Specimen Description:
11/07/24 22:52
Acetaminophen 1000MG/100Ml [Ofirmev] 1,000 mg in 100 ml IV Q6HPRN
Acetaminophen IV Indication:: Ileus/Delayed Bowel Func.
HYDROmorphone [Dilaudid] 0.25 mg IV Q3HPRN PRN
Ondansetron Injectable [Zofran] 4 mg IV Q6HPRN PRN
11/07/24 22:52
CARDIOLOGY CONSULT Routine
Consulting Provider: Luis Alfredo Nunez
Was physician already notified: No
Reason for consult: Acute Heart Failure
Consult Notification Routine
Specialty to Notify: Cardiology
SURGICAL CONSULT Routine
Consulting Provider: Marcello Zuniga
Was physician already notified: Yes
Activity As Directed
Activity Level: Out of Bed- Chair
I&O [Intake/ Output] As Directed
Frequency: q12h
Vital Signs As Directed
Frequency: Per unit guidelines
Weight As Directed
Frequency: Daily
Oxygen Therapy [O2 Therapy] [RESP] Routine
Titrate/Wean O2 to maintain O2 sat greater than (%): 90
DX Deep Vein Thrombosis Video Routine
11/08/24 00:00
Heparin 5,000 units SC Q8
11/08/24 06:00
Basic Metabolic Panel IN AM
Complete Blood Count/No Diff IN AM
LFT [Wujow-Tdhg-Sjzdvsj] IN AM
Magnesium IN AM
Abdomen Xray - 1 View [CR Abdomen - 1 View] IN AM
Comment: follow-up contrast from CT scan
Reason For Exam: Abd Pain
11/08/24 07:00
Troponin I Q8H
11/08/24 08:00
Furosemide [Lasix] 40 mg IV DAILY
11/10/24 11:00
DC Protocol for Telemetry ONCE
Abnormal Lab Results
11/07/24 11/07/24
15:07 21:41
WBC 27.1 H 10^3/uL
(4.8-10.8)
RBC 4.08 L 10^6/uL
(4.20-5.40)
Hgb 10.6 L g/dL
(12.0-16.0)
Hct 33.7 L %
(37.0-47.0)
MCH 26.0 L pg
(27.0-31.0)
MCHC 31.5 L g/dL
(33.0-37.0)
RDW 17.3 H %
(11.5-14.5)
Abs Immat Gran (auto) 0.2 H 10^3/uL
(0-0.05)
Absolute Neuts (auto) 24.2 H 10^3/uL
(1.4-6.5)
Absolute Lymphs (auto) 1.0 L 10^3/uL
(1.2-3.4)
Absolute Monos (auto) 1.7 H 10^3/uL
(0.1-0.6)
Immature Gran % 0.6 H %
(0-0.5)
Neutrophils % 89.2 H %
(42.2-75.2)
Lymphocytes % 3.7 L %
(20.5-51.1)
BUN 41 H mg/dl
(7-17)
Creatinine 1.4 H mg/dL
(0.6-1.0)
Glucose 185 H mg/dl
(70-99)
Lactic Acid 3.1 H mmol/L
(0.7-2.0)
Total Bilirubin 2.7 H mg/dl
(0.2-1.3)
Alkaline Phosphatase 278 H U/L
(38-126)
Troponin I 0.099 H* ng/ml
Albumin 3.2 L g/dl
(3.5-5.0)
11/07/24 15:07
11/07/24 15:07
Vital Signs
Initial and Last Documented VS:
Initial Vital Signs
Temp Pulse Resp BP
98.9 F 78 16 134/59
11/07/24 15:00 11/07/24 15:00 11/07/24 15:00 11/07/24 15:00
Last Documented Vital Signs
Temp Pulse Resp BP Pulse Ox
98.0 F 82 24 167/71 93
11/07/24 16:26 11/07/24 22:51 11/07/24 19:15 11/07/24 22:51 11/07/24 19:15
MDM/Problems Addressed
MDM/Problems Addressed:
CT abdomen pelvis report reviewed and discussed with patient and family.
Discussed with on-call surgeon, Dr. Zuniga. Recommends NGT placement for decompression, along with iv abx.
NGT successfully placed in ED with improvement. X-ray confirmed placement
Critical care statement: A total of 40 minutes of critical care time was provided for this patient. This includes management of unstable vital signs, evaluation of the patient at bedside, reviewing the patient's pertinent medical records, discussion
with consultants, review of old EKGs and review of pertinent medical records. This time with separate from time utilized to perform the aforementioned documented procedures
*EKG
Interpreted by ED Provider?: Yes
EKG Intrepretation Date: 11/07/24
Heart Rate: 84
Rate: normal
Rhythm: a-fib
Hilmar: left axis deviation
Ischemia: non-specific ST changes
*Critical Care Note
Total Time (30-74mins, 75-104mins- exclusive of procedures): 40 min
ED Attending Note
-
Portions of this chart may have been created with voice recognition software.� Occasional wrong word or��sound alike� substitutions may have occurred due to the inherent limitations of voice recognition software.
Discharge Plan
Departure
Patient Disposition: Admit
Date of Disposition: 11/07/24
Time of Disposition: 21:29
Presentation/result/management discussed w/ accepting MD/DO: Hospitalist
Discharge Problem:
SBO (small bowel obstruction), Congestive heart failure (CHF)
Interventions
Interventions:
*Risk Screen - Suicide Last Done: 11/07/24 15:03
*General Assessment Last Done: 11/07/24 16:29
*Neglect/Abuse Screening Last Done: 11/07/24 15:03
*ED- Fall Risk Assessment Last Done: 11/07/24 16:29
*ED COVID-19 Vaccine History Last Done: 11/07/24 16:29
ED-Musculoskeletal Assessment Last Done: 11/07/24 16:33
[2024-11-07] MEDS: OMNIPAQUE 50 ML PO (18:08)
--- NOTE | 2024-11-07 21:20 | HPS.HSE ---
Addendum entered and electronically signed by Shawn Kiser DO 11/07/24 22:32:
Patient seen and examined independently. Agree with findings and plan as set forth by Sonia Esteves PA-C.
Patient is an 89y F with PMH significant for A-Fib on Eliquis, CHF / Cardiomyopathy and CKD who presents to ED complaining of SOB and abdominal pain. Patient notes that dyspnea has been progressive over the past week or so. No significant
cough, fevers / chills, etc. For the past 2 days she has noted increased abdominal distention with abdominal tenderness. No BM for the past 2-3 days. No reported N/V.
In the ED, patient complains primarily of significant fatigue and just wants to sleep.
CT scan shows high-grade small bowel obstruction as well as evidence of volume overload / anasarca.
Ass:
High Grade SBO
Acute on Chronic HFrEF
Valvular Heart Disease
Abnormal Troponin - Likely non-ischemic myocardial injury
Paroxysmal A-Fib
Benign Hypertension
CKD III
Plan:
Admit for further evaluation and treatment.
NG placed for decompression in the ED.
Supportive care including NPO, antiemetics, pain control if needed.
Patient and daughter very clear that they would not desire surgical intervention in any circumstance.
Check KUB in the AM for any changes / progression of oral contrast.
Change Lasix to IV for now and follow I/Os, daily weights, etc.
Cardiology evaluation.
Echo done last in 04/2024 with LVEF 35-40% with significant MR and .
Original Note:
Family Physician
-
Family Physician: NOT KNOW UNKNOWN - PT DOES
Chief Complaint
-
Shortness of Breath and Abdomnal Pain
History of Present Illness
Patient is an 89 y/o female past medical history of heart failure, atrial fibrillation, hypertension, and chronic kidney disease who presents with shortness of breath and abdominal. Patient reports increasing shortness of breath, particularly
dyspnea on exertion over the past week. She saw her irrigation specialist last week who increased her Lasix without much improvement in symptoms. Over the 2 days patient has developed increasing abdominal distention, with no bowel movement for the past few
days. She reports abdominal pain when pushing on the abdomen. She denies nausea or vomiting.
Medical History
Past Medical History
Past Medical History: Reports Other
Additional Past Medical History:
Chronic HFrEF
Paroxysmal Atrial Fibrillation
Essential Hypertension
CKD Stage III
Past Surgical History: Reports Other
Additional Past Surgical History:
Hysterectomy
Social History
Tobacco: Smoker
Family History
Family History: Not pertinent
Allergies / Home Medications
Allergies reflects when Allergies were last updated in [email or web address].
Home Medications with original date entered in [email or web address]
Allergy/Medication List:
Allergies
Allergy/AdvReac Type Severity Reaction Status Date / Time
No Known Allergies Allergy Verified 11/07/24 16:26
Home Medications
tramadol 50 mg tablet 50 mg PO Q6HPRN PRN back pain 05/08/24
apixaban 2.5 mg tablet (Eliquis) 2.5 mg PO BID #60 tabs 05/11/24
furosemide 40 mg tablet 40 mg PO DAILY #30 tabs 05/11/24
lisinopril 10 mg tablet 10 mg PO DAILY #30 tabs 05/11/24
Review of Systems
-
A 12 point ROS was completed and negative except as noted: Yes
Constitutional: Denies Fever or Chills
Respiratory: Reports Trouble Breathing
Cardiac: Reports Chest Pain; Denies Palpitations
Abdomen/GI: Reports See HPI
Physical Exam
Vital Signs
Vital Signs
Temp Pulse Resp BP Pulse Ox
98.0 F 84 24 144/63 93
11/07/24 16:26 11/07/24 20:00 11/07/24 19:15 11/07/24 20:00 11/07/24 19:15
Physical Exam
General: Well Developed, Conversant and Other (Elderly and Frail appearing)
HEENT: NormoCephalic, Anicteric and Oxygen (Nasal Cannula)
Respiratory: Non Labored Respirations and Decreased Breath Sounds (Bilateral Bases)
Cardiac: S1/S2, Regular Rhythm and Murmur (Systolic Murmur)
GI: Other (Mild distention; Hypoactive bowel sounds heard only in the upper quadrants; Tenderness throughout)
Rectal: Deferred by Provider
Musculoskeletal: No Clubbing, No Cyanosis and Other (Bilateal lower extremity edema with skin discoloration which family reports is chronic)
Skin: Warm and Dry
Neuro: Awake, Alert, Oriented and No Motor Deficits
Psych: Calm
Laboratory Results
-
11/07/24 15:07
11/07/24 15:07
Laboratory Results
Total Bilirubin 2.7 mg/dl (0.2-1.3) H 11/07/24 15:07
AST 27 U/L (14-36) 11/07/24 15:07
ALT < 30 U/L (0-35) 11/07/24 15:07
Alkaline Phosphatase 278 U/L (38-126) H 11/07/24 15:07
Troponin I 0.099 ng/ml H* 11/07/24 15:07
Data Reviewed
-
CT Scan: Report Reviewed by me
Lab Data: Labs Reviewed by me
Old Records: Reviewed
Impression/Plan
-
Small Bowel Obstruction
-Reviewed with patient/family who prefer conservative management
-Patient agreeable to NG tube placement
-Attempt decompression with NG tube to low intermittent suction
-Continue NPO
-Continue empiric Zosyn
-Check lactic acid level
Acute on Chronic HFrEF
-Echo Apr 2024: Moderately reduced left ventricular systolic function and Global hypokinesis with EF 35-40%. Stage II diastolic dysfunction. Severe mitral regurgitation.
-Consult Cardiology
-Continue Lasix 40mg IV Daily
-Monitor Daily Weights
Elevated Troponin likely non-ischemic myocardial injury in setting of acute heart failure
-Trend troponin
Paroxysmal Atrial fibrillation
-Eliquis on hold with NGT in place
Essential Hypertension
-Lisinopril on hold
-Monitor blood pressure
CKD Stage III
-Creatinine at baseline
-Monitor closely while on diuretics
DVT proph: SC Heparin until able to resume Eliquis
Code Status: DNR confirmed with patient and patient's daughter at time of admission
[2024-11-07 22:00] LABS: Lactic Acid 3.1 mmol/L (0.7-2.0)
[2024-11-07] MEDS: LASIX 40 MG IV (22:51)
[2024-11-07] MEDS: ZOSYN 50 IV (22:57)
[2024-11-07 23:16] LABS: Troponin I 0.124 ng/ml
[2024-11-08] VITALS (12 sets, daily range): BP systolic 83–145; BP diastolic 44–64; BMI 18.6
--- NOTE | 2024-11-08 01:00 | PTCARENOTE ---
Patient received from ED, AAOx3, sleepy, 'wants to sleep', Afib on monitor, +1 lower extremity edema. Lungs with fine crackles bibasilar, pulse ox 93% on 3L, [place] sumo in left nare, abdomen distended. Skin on with multiple scabs on back, knees
and buttock. #18 g in RAC , #22g in left forearm flushed and patent, Plan of care discussed, call núñez within reach
[2024-11-08] MEDS: HEPARIN 5000 UNITS SC ×4 (01:13→23:47)
[2024-11-08] MEDS: OFIRMEV 100 IV ×2 (02:56→13:28)
[2024-11-08] MEDS: ZOSYN 50 IV ×4 (03:41→22:20)
[2024-11-08 07:26] LABS: Hematocrit 29.9 % (37.0-47.0); Hemoglobin 9.8 g/dL (12.0-16.0); Mean Corp Hgb Conc. 32.8 g/dL (33.0-37.0); Mean Corpuscular Hgb 26.3 pg (27.0-31.0); Mean Corpuscular Volume 80.2 fL (81.0-99.0); Mean Platelet Volume 10.5 fL (7.4-10.4); Platelet Count 263 10^3/uL (130-400); Red Blood Cell Count 3.73 10^6/uL (4.20-5.40); Red Cell Dist. Width 17.3 % (11.5-14.5); White Blood Cell Count 20.6 10^3/uL (4.8-10.8)
[2024-11-08 07:38] LABS: Lactic Acid 2.9 mmol/L (0.7-2.0)
[2024-11-08 07:51] LABS: Troponin I 0.136 ng/ml
--- NOTE | 2024-11-08 08:11 | CON.CAR ---
Addendum entered and electronically signed by Darrius Bonds MD 11/08/24 11:19:
89 yo female with PMH of chronic HFrEF, EF 35-40%, severe , severe MR is admitted with small bowel obstruction. We are consulted to assess for HF. She is lethargic on exam. III/ systolic murmur at RUSB, trace LE edema. WBC 20.6. lac 3.0. TnI
0.1. Cr1.9.
She appears to be severely ill in setting of SBO with signs of sepsis. She only wants conservative mgmt.
Chronic HFrEF. Would not give any more lasix at this time. We will monitor volume status.
Original Note:
Consultation
Consultation Request
Date/Time Consultation Requested: 11/07/2024 22:50
Date/Time Consultation Performed: 11/08/2024 09:00
Requesting Provider: Sonia Esteves PA-C
Performing Provider: TITO Kraus for Dr. Bonds
Reason for Consultation: Acute on chronic HF
Medical History
-
Chief Complaint: Shortness of breath
History of Present Illness:
Pamela Harrison is an 88 year old female (known to Dr. Bonds, her primary laboratory courier) with HFrEF (EF 35-40%), paroxysmal atrial fibrillation (on apixaban), severe aortic stenosis, severe mitral regurgitation, HTN, CKD stage III, HLD, current
smoker, and OA who presented to the ER with a chief complaint of shortness of breath. She also endorsed abdominal pain. Her shortness of breath has been ongoing for a few days but over the past 48 to 72 hours noted abdominal distention with
tenderness. No bowel movement for at least [address] showed high-grade SBO in addition to volume overload/anasarca. She is chest pain-free. She does not feel short of breath at this time.
Past Medical History
Past Medical History: HTN, Hypercholesterolemia, Renal Failure (CKD3) and Valvular Disease (Severe , severe MR)
Past Surgical History: Gynecological
Social History
Tobacco: Smoker
Alcohol: None
Drug: None
Living: With Family
Employment: Retired
Family History
Family History: Reviewed & Not Pertinent
Allergies / Home Medications
Allergy/AdvReac Type Severity Reaction Status Date / Time
No Known Allergies Allergy Verified 11/07/24 16:26
�Medication �Instructions �Recorded �Confirmed �Type
tramadol 50 mg tablet 50 mg PO Q6HPRN PRN back pain 05/08/24 11/07/24 History
apixaban 2.5 mg tablet (Eliquis) 2.5 mg PO BID #60 tabs 05/11/24 11/07/24 Rx
furosemide 40 mg tablet 40 mg PO DAILY #30 tabs 05/11/24 11/07/24 Rx
lisinopril 10 mg tablet 10 mg PO DAILY #30 tabs 05/11/24 11/07/24 Rx
Review of Systems
-
History Source: Patient
All other systems: Negative unless noted
Constitutional: Fatigue
EENT: No Symptoms
Respiratory: Trouble Breathing
Cardiac: No Symptoms
Abdomen/GI: Other (Distention)
: No Symptoms
Musculoskeletal: No Symptoms
Skin: No Symptoms
Neurological: Weakness
Endocrine: No Symptoms
Hematologic/Lymphatic: No Symptoms
Physical Exam
Vital Signs
Temp Pulse Resp BP Pulse Ox
97.6 F 68 14 126/45 98
11/08/24 03:02 11/08/24 03:02 11/08/24 03:02 11/08/24 03:02 11/08/24 03:02
Lab Results
11/08/24 07:15
Troponin I 0.136 ng/ml H* 11/08/24 07:15
Xzy-G-Rcstkfxckxp Pept > 06619 pg/ml 11/07/24 15:07
Physical Exam
General: No Apparent Distress and Comfortable
HEENT: Normocephalic, Anicteric and Moist Mucous Membranes
Respiratory: Clear and Non Labored Respirations
Cardiac: S1/S2, Regular Rhythm and Peripheral Edema
Breast: Deferred by me
GI: Tender and Distended
Rectal: Deferred by Provider
Genito-urinary: No Costovertebral Tender
Musculoskeletal: No Cyanosis
Skin: Warm and Dry
Neuro: AO x 3
Hematologic/Lymphatic: No Lymphadenopathy
Psych: Calm
Impression / Plan
-
I/P: 89F with HFrEF (EF 35-40%), paroxysmal atrial fibrillation (on apixaban), severe aortic stenosis, severe mitral regurgitation, HTN, CKD stage III, HLD, current smoker, and OA who presented to the ER with a chief complaint of shortness of breath.
Primary Supervisor [employer]: Dr. Bonds
Sepsis
- Leukocytosis, lactic acidosis, hypotension, and NILS
- Hold further diuresis
Acute hypoxic respiratory failure
- On 3 L nasal cannula and with hypoxemia on exertion
HFrEF (EF 35-40 %), acute on chronic
-With severe valvular heart disease
-She was instructed to increase furosemide to twice daily dosing at her last office visit
-Conservative cardiac management--patient does not want any invasive procedures.
-Diuresis with furosemide 40mg IV daily if BP allows
-Her weight is relatively unchanged from prior admission
-Further GDMT limited by renal dysfunction.
SBO, high grade
-Conservative mgmt per her request
-She removed her NG tube
NILS on CKD, follow
Severe aortic stenosis
Severe mitral regurgitation
Paroxysmal atrial fibrillation
-Beta remedios stopped as an outpatient due to fatigue
-Oral Anticoagulation: Apixaban 2.5mg BID (age > 80, weight < 60kg) ON HOLD
-[id number]: score at least 5 (Heart failure, HTN, age 75 or more, female gender)
Hypertension, now hypotensive, agents on hold
Abnormal troponin, likely nonischemic myocardial injury in the setting of acute heart failure & acute illness
-Trend to peak, currently 0.136, could end up being type II GA given her acute illness, follow
-Chest pain free
Coronary artery calcifications, on CT
Chronically elevated AST, ALT, & GGT -- refused outpatient testing by PCP
Current smoker, cessation recommended
Prediabetes, HbA1c 5.9%
Data Reviewed
-
EKG: Report Reviewed by me
CT Scan: Report Reviewed by me
Medical Tests (Nuc Med, Echo etc): Report Reviewed by me (Prior echocardiogram)
Labs: Labs Reviewed by me
Old Records: Reviewed
[2024-11-08 08:13] LABS: ALT (SGPT) 16 U/L (0-35); AST (SGOT) 22 U/L (14-36); Albumin 2.6 g/dl (3.5-5.0); Alkaline Phosphatase 221 U/L (38-126); Blood Urea Nitrogen 58 mg/dl (7-17); Calcium 8.6 mg/dl (8.4-10.2); Carbon Dioxide 30 mmol/L (22-30); Chloride 99 mmol/L (98-107); Direct Bilirubin 1.6 mg/dl (0.0-0.4); Estimated Creatinine Clearance 15 ml/min; Glucose 115 mg/dl (70-99); Magnesium 1.9 mg/dl (1.6-2.3); Potassium 4.3 mmol/L (3.5-5.1); Sodium 135 mmol/L (135-145); Total Bilirubin 2.8 mg/dl (0.2-1.3); eGFR 25.24
--- NOTE | 2024-11-08 09:00 | PTCARENOTE ---
Patient's bed alarm went off. Patient found climbing OOB, pulled out NGT. Patient ambulated to bathroom with assist x1. Patient is weak, but steady with help. Patient voiding without difficulty. Patient SOB ambulating back from bathroom, RA sat 79%.
O2 3l NC placed on patient, sat now 94%. Patient's LE cool and mottled-cardiac PA aware. Patient has no c/o pain. Patient does c/o pain only when palpating abdomen.
--- NOTE | 2024-11-08 09:22 | VNURNOTE ---
Chart reviewed. Patient is current with [facility] nursing, OT. Will continue to follow hospital course and DC plans.
--- NOTE | 2024-11-08 09:29 | CON.GS ---
Consultation
-
Date/Time Consultation Requested: 11/07/2024
Date/Time Consultation Performed: 11/08/2024
Reason for Consultation: SBO
Medical History
-
Chief Complaint: Weakness and SOB
History of Present Illness:
Patient is an 89 yo F with a PMH of active tobacco use, HTN, HLD, A-fib (on Eliquis, LD 11/07 PM), CHF, severe , severe MR, OA, CKD, and s/p open hysterectomy. History is limited due to patient's mental acuity. She was recently seen in the
cardiology office on 11/02 with no complaints of abdominal discomfort at that time. Per chart review it sounds as though her abdominal discomfort has developed over the past few days. She denies any prior issues with bowel obstructions or
constipation. No recent BM or passage of flatus reported. She denies any nausea or vomiting. She states that she just wants to be left alone and go to sleep. Afebrile.
Of note, patient had an NGT placed on admission, which she has since removed.
Past Medical History
Past Medical History: Arrhythmias (Afib), CHF, HTN, Hypercholesterolemia, Renal Failure and Valvular Disease (Severe and MR)
Past Surgical History: Gynecological (Hysterectomy)
Social History
Tobacco: Smoker
Alcohol: None
Drug: None
Family History
Family History: Reviewed & Not Pertinent
Allergies / Home Medications
Allergy/AdvReac Type Severity Reaction Status Date / Time
No Known Allergies Allergy Verified 11/07/24 16:26
�Medication �Instructions �Recorded �Confirmed �Type
tramadol 50 mg tablet 50 mg PO Q6HPRN PRN back pain 05/08/24 11/07/24 History
apixaban 2.5 mg tablet (Eliquis) 2.5 mg PO BID #60 tabs 05/11/24 11/07/24 Rx
furosemide 40 mg tablet 40 mg PO DAILY #30 tabs 05/11/24 11/07/24 Rx
lisinopril 10 mg tablet 10 mg PO DAILY #30 tabs 05/11/24 11/07/24 Rx
Review of Systems
-
A 10 point review of systems was completed, and was negative except as per HPI.
Physical Exam
Vital Signs
Temp Pulse Resp BP Pulse Ox
97.5 F 65 16 83/64 94
11/08/24 07:00 11/08/24 07:00 11/08/24 07:00 11/08/24 07:00 11/08/24 07:00
11/07/24 11/08/24 11/09/24
06:59 06:59 06:59
Actual Weight 44.65 kg
Body Mass Index (BMI) 18.6
Lab Results
11/08/24 07:15
11/08/24 07:15
WBC 20.6 10^3/uL (4.8-10.8) H 11/08/24 07:15
Hgb 9.8 g/dL (12.0-16.0) L 11/08/24 07:15
Hct 29.9 % (37.0-47.0) L 11/08/24 07:15
Plt Count 263 10^3/uL (130-400) 11/08/24 07:15
Abs Immat Gran (auto) 0.2 10^3/uL (0-0.05) H 11/07/24 15:07
Neutrophils % 89.2 % (42.2-75.2) H 11/07/24 15:07
Physical Exam
General: No Apparent Distress
Respiratory: Other (Slightly increased work of breathing)
Cardiac: Irregular Rhythm
GI: Soft, Tender (mild diffusely), Distended (tympanitic), Incisions (lower midline well healed) and Other (no rebound or guarding)
Musculoskeletal: No Edema
Skin: Warm and Dry
Neuro: Nonfocal/Grossly Intact
Data Reviewed
-
Radiology: Image Personally Visualized and interpreted
CT Scan: Image Personally Visualized and interpreted and Report Reviewed by me
Labs: Labs Reviewed by me
Assessment / Plan
-
Patient is an 89 yo F p/w CHF exacerbation in the setting of a SBO
CT scan imaging demonstrates significant small bowel distention, difficult to definitively appreciate a transition point though appears to be in the central lower abdomen. No evidence of pneumatosis or free air. Repeat abdominal x-ray demonstrates
the majority of the contrast has been evacuated with continued dilated loops of small bowel and little to no air within the colon. Ms. Harrison has had significant risks for complications given her cardiopulmonary history and active anticoagulation.
She states that she does not want any procedural interventions and has previously refused though as a relates to a cardiac standpoint. Goals of care have yet to be clearly defined. She has an upcoming outpatient appointment with Palliative Care.
Recommend medical management with NGT decompression, NPO, and IVF per the discretion of Cardiology.
-- No plans for surgery at this time given patients wishes and high risk for surgery with CV risks and anticoagulation
-- NPO, IVF, NGT decompression
-- Correct lytes, minimize narcotics
[2024-11-08 09:59] LABS: Glycohemoglobin (HgbA1c) 5.9 % (4.0-5.6)
--- NOTE | 2024-11-08 13:25 | PTCARENOTE ---
Addendum entered by Chyna Thrasher RN 11/08/24 15:12:
No change from this am. Pulse weak, but palpable. Ofirmev given at 1328. Daughter at bedside.
Original Note:
Patient c/o right pain pain on sole of foot. Foot mottled
[2024-11-08 13:31] LABS: Troponin I 0.131 ng/ml
--- NOTE | 2024-11-08 13:53 | W.PN.HOSP.TC ---
Today's Communication/Plan
-
DC Lasix
40 ml/hr IVF
NGT
NPO
AB
Prognosis guarded.
Assessment / Plan
Assessment / Plan
89-year-old female with abdominal pain and distention. No bowel movements in the past few days
CT abdomen and hswywf-ebvn-eewjm small bowel obstruction. Free fluid in all 4 quadrants. No free air. Moderate right pleural effusion and small left pleural effusion. Adjacent atelectasis of the lower lungs. Fusiform bronchiectasis in the
anterior aspect of the right lower lobe. Cholelithiasis. No findings to suggest acute cholecystitis. Patchy areas of decreased enhancement scattered throughout both kidneys suspicious for multiple bilateral renal infarcts with differential of
pyelonephritis. Bilateral hypodense and simple renal cyst. Dense vascular calcification with no evidence of abdominal aortic aneurysm.
Echo 05/09/2024-moderately reduced LV systolic function. EF 35 to 40%. Global hypokinesis. Stage II diastolic dysfunction. Severe central MR. Severe versus pseudo severe aortic stenosis. Mild TR. Moderately elevated PA systolic pressure.
Uncomfortable
Cardiovascular system S1-S2 appreciated, short systolic murmur at aortic area and apex
Chest decreased breath sounds bilaterally
Abdomen distended, no bowel sounds appreciated, mild tenderness present in the mid abdomen area
No pedal edema
# High-grade small bowel obstruction
NG tube decompression
Continue n.p.o.
Zosyn because of elevated white count
Blood cultures pending
Abdomen X ray pending continues
Surgical consultation requested to weigh in and discuss risks .
Family doesn't want surgery.
We discussed that conservative management may or may not get her improved with high-grade small bowel obstruction. She also has lactic acidosis as well as
# Lactic acidosis-follow. Gentle IVF while NPO
#Chronic HFrEF
I do not see any evidence of decompensation at present
She is n.p.o. and hypotensive and has lactic acidosis
Hold Lasix
Monitor daily weights
Cardiology consulted
# Anemia-likely secondary to CKD
# Abnormal kidneys-infarcts versus infection-continue antibiotics. IV fluids
# Elevated troponin likely nonischemic myocardial injury in the setting Of SBO
# Paroxysmal atrial fibrillation hold Eliquis in case patient needs surgery patient does not seem to be on. Rate controlling agents
# Hypertension-hold lisinopril
# Bronchiectasis
# Cholelithiasis
# CKD stage III
# Moderate protein calorie malnutrition
# Hypoalbuminemia
# Smoker-cessation counseling
# DVT prophylaxis-subcutaneous heparin
# DNR status
Discussed with nursing
Discussed with cardiology
Detailed discussion the patient's daughter at bedside regarding high-grade obstruction, lactic acidosis, valvular heart disease, malnutrition, leukocytosis all this leads to a combination of medical problems from which she may not completely
recover. Daughter stated that patient did not want surgery for her heart valve. I asked if she continues to get worse if daughter would pursue comfort care/hospice. She wanted more information and I gave her more information about this.
Continue to monitor patient
Prognosis guarded at the best.
Time spent over 50 min
Part of this note was created using voice recognition system. Occasional wrong word or��sound alike� substitutions may have inadvertently occurred due to the inherent limitations of voice recognition software. If noted kindly bring it to my
attention for correction.
Anticipated Discharge: > 48 hours
Subjective/Interval History
-
Date of Service: November 08, 2024
Objective Data
-
Labs:
Laboratory Results
11/08/24
07:15
WBC 20.6 H
Hgb 9.8 L
Hct 29.9 L
Plt Count 263
Sodium 135
Potassium 4.3
Chloride 99
Carbon Dioxide 30
BUN 58 H
Creatinine 1.9 H
Glucose 115 H
Calcium 8.6
Total Bilirubin 2.8 H
AST 22
ALT 16
Alkaline Phosphatase 221 H
Vital Signs:
Vital Signs
Temp Pulse Resp BP Pulse Ox
97.6 F 67 16 91/48 100
11/08/24 11:00 11/08/24 11:00 11/08/24 11:00 11/08/24 11:00 11/08/24 11:00
I&O
11/07/24 11/08/24 11/09/24
06:59 06:59 06:59
Intake Total 150 / 150
Output Total 500 / 500
Balance -350 / -350
--- NOTE | 2024-11-08 14:35 | PTCARENOTE ---
Patient c/o 10/10 right foot pain. Right foot is pale and cold. No palpable pulse. No doppler pulse. Physician notified, vascular consulted, Dilaudid given, warm blanket wrapped around foot. Family at bedside.
[2024-11-08] MEDS: DILAUDID 0.25 MG IV (14:40)
[2024-11-08] MEDS: D5/0.45%NACL 1000 IV (14:40)
--- NOTE | 2024-11-08 14:53 | W.PN.UPDATE ---
Update Note
Progress Note Update
Evaluated the patient again as she had cold foot and pain
On examination patient has no pulses felt in the dorsalis pedis and posterior tibial right foot is cold .
Bloody drainage from NG tube
Difficult situation as we cannot start anticoagulation
Discussed with the patient's daughter and other family members at bedside
I have requested vascular evaluation even though I am not sure nothing Much can be done at this point
Discussed goals of care again with daughter who cannot make a decision at this point. Tearful
Nursing at bedside
Daughter is aware that patient may deteriorate
--- NOTE | 2024-11-08 15:26 | CM ---
Initial assessment completed. Patient is an 89 y/o female past medical history of heart failure, atrial fibrillation, hypertension, and chronic kidney disease who presents with shortness of breath and abdominal pain. Hospitalist having goals of care
discussion w/ daughter.
Patient resides alone in a single story home- 1 step to enter. Independent, no DME identified. No SNF hx reported, current w/ [facility].
Address, point of contact and insurance verified
PCP: Lillian Bonilla
Pharmacy: [facility]
Plan: CM will cont to follow for d/c planning
--- NOTE | 2024-11-08 15:46 | CON.VAS ---
Addendum entered and electronically signed by Rian Arredondo III, MD 11/08/24 19:29:
This patient was seen and examined in collaboration with TITO Raman. I agree with the history and physical exam as well as the assessment and plan. I have the following additions:
Met with the patient and family at bedside
Personally reviewed CT angiogram. Extensive multilevel calcified arterial disease-aortoiliac, common femoral, SFA/pop, tibial.
I cannot identify flow into the foot on CTA on the right
Her foot is clearly ischemic on exam and she is having severe rest pain
I explained the results of her CT angiogram to her. Explained surgical options including endovascular and open revascularization procedures. Risks and benefits of both were discussed with her and her family members in detail. Also discussed
option for no surgery.
She is very clear that she does not want surgical intervention. Her main goal is to be made comfortable and reduce pain in her right leg/foot. My recommendation is to initiate Dilaudid [employer] EVENTS and treat pain aggressively. Initiate hospice discussions
with patient and family. All questions answered.
Call with questions or concerns.
Signed:
Rian Arredondo III, MD
Vascular Surgery
[facility]
Addendum entered and electronically signed by TITO Raman 11/08/24 17:12:
Informed by Chyna Thrasher RN that family and patient would like to proceed with CT angio in order to make informed decision on surgical options. CT angio aorta with run off ordered STAT, and hospitalist and Dr. Arredondo updated.
Original Note:
Consultation
Consultation Request
Date/Time Consultation Performed: 11/08/24 1540
Requesting Provider: Hospitalist
Performing Provider: Estrellita Patton NP-C for Rian Arredondo III, MD
Reason for Consultation: Concern for acute limb threatening ischemia of right foot
Medical History
-
Chief Complaint: Acute onset of right foot coolness and pain
History of Present Illness:
Is an 89-year-old female significant past medical history for atrial fibrillation, heart failure, cardiomyopathy, CKD, hypertension, hyperlipidemia, severe aortic stenosis, severe mitral regurgitation, current smoker, peripheral arterial disease,
and obstructive sleep apnea who presented to [facility] on 11/07/2024 with reports of shortness of breath and eventual developed abdominal distention prompting admission for acute on chronic heart failure management and small bowel obstruction.
Patient was evaluated by general surgery earlier today who indicated patient did not want any surgical intervention and desired medical management via NG tube. She was on Eliquis for her atrial fibrillation management but NG tube output was noted
to be grossly bloody, which led to discontinuation of oral anticoagulation. Daughter and additional family members are accompanying patient at bedside and contributing to HPI. Per patient she developed acute onset of foot pain a couple hours ago,
she is struggling to provide any any additional information other than she is in stomach and foot pain. Daughter endorses that for roughly the past 1 to 2 hours her right foot has been cool and pale, concern for acute limb threatening ischemia
prompted vascular consultation. This provider urgently responded to bedside for evaluation given concerns for acute limb ischemia. Patient and her daughter note that she has not seen a vascular surgeon or had any vascular intervention. Her daughter
notes that prior to this admission she was living alone and independently. Family particular daughter does indicate that she is struggling to make decisions as she realizes goals of care need to be established.
Past Medical History
Past Medical History: Other (atrial fibrillation, heart failure, cardiomyopathy, CKD, hypertension, hyperlipidemia, severe aortic stenosis, severe mitral regurgitation, current smoker, peripheral arterial disease, and obstructive sleep apnea)
Past Surgical History: Other (Hysterectomy)
Social History
Tobacco: Smoker
Personal: Single
Living: Alone
Allergies / Home Medications
Allergy/AdvReac Type Severity Reaction Status Date / Time
No Known Allergies Allergy Verified 11/07/24 16:26
�Medication �Instructions �Recorded �Confirmed �Type
tramadol 50 mg tablet 50 mg PO Q6HPRN PRN back pain 05/08/24 11/07/24 History
apixaban 2.5 mg tablet (Eliquis) 2.5 mg PO BID #60 tabs 05/11/24 11/07/24 Rx
furosemide 40 mg tablet 40 mg PO DAILY #30 tabs 05/11/24 11/07/24 Rx
lisinopril 10 mg tablet 10 mg PO DAILY #30 tabs 05/11/24 11/07/24 Rx
Review of Systems
-
History Source: Patient
Constitutional: Reports Fatigue
EENT: Reports No Symptoms
Respiratory: Reports Other (Shortness of breath)
Cardiac: Reports No Symptoms
Vascular: Reports Numbness and Other (Coolness and pain to right foot)
Abdomen/GI: Reports Abdominal Pain and Nausea
: Reports No Symptoms
Musculoskeletal: Reports No Symptoms
Skin: Reports Other (Right foot with pale discoloration)
Neurological: Reports No Symptoms
Endocrine: Reports No Symptoms
Physical Exam
Vital Signs
Temp Pulse Resp BP Pulse Ox
97.4 F 64 18 91/61 100
11/08/24 15:00 11/08/24 15:00 11/08/24 15:00 11/08/24 15:00 11/08/24 15:00
Lab Results
11/08/24 07:15
11/08/24 07:15
Troponin I 0.131 ng/ml H* 11/08/24 12:56
Xpy-T-Vlprxxfrimn Pept > 48505 pg/ml 11/07/24 15:07
Physical Exam
General: No Apparent Distress and Comfortable
HEENT: Normocephalic, Anicteric and Atraumatic
Respiratory: Non Labored Respirations
Cardiac: Negative JVD
GI: Tender, Distended and Other (NG tube with bloody output evident in suction canister)
Musculoskeletal: No Edema
Skin: Other (Right foot cool, pale, greater than 5-second capillary refill in digits, decreased motor and sensation at digits but has complete motor function at ankle)
Neuro: Awake
Pulses: Bilateral Femoral: +1 (Unable to get Doppler signal in right foot DP or PT)
Assessment / Plan
-
Assessment: 89-year-old female with chronic peripheral arterial disease with suspected acute limb threatening ischemia to right leg in the setting of small bowel obstruction and acute heart failure exacerbation
Plan:
For full evaluation of extent of peripheral arterial disease and any possible occlusions to distal blood flow to right foot patient will require CT angiogram of aorta with runoff, patient underwent CT abdomen pelvis yesterday thus would be
additional IV contrast dye load, patient has chronic kidney disease. However, this would be required in order to provide full vascular recommendation for suspected limb-threatening ischemia. Reviewed in detail with patient, daughter, and other
family members present the concerns and pathology of acute limb threatening ischemia, the various surgical interventions that could be recommended, and the risk vs. benefit of any surgical intervention for revascularization given there is a current
concern for GI bleed with bloody NG tube output and patient is medically complex. Patient's daughter requesting that we hold off on CT angiogram as she and family would like time to discuss goals of care, provided emotional support. Will await
family decision. Relay plan to hospitalist and network operations technician vascular surgeon Dr. Rian Arredondo III who agrees with plan.
[2024-11-08] MEDS: PROTONIX 100 IV (16:42)
[2024-11-08] MEDS: DILAUDID PCA 30 IV (21:45)
[2024-11-09] VITALS (12 sets, daily range): BP systolic 99–137; BP diastolic 38–78; BMI 17.2
[2024-11-09] MEDS: PROTONIX 100 IV (01:49)
--- NOTE | 2024-11-09 03:50 | PTCARENOTE ---
Pt increasingly confused throughout the night, intermittently restless versus drowsy, difficult/unable to reorient. Pt pulling at equipment (IVs, NG tube, O2 tubing) despite redirection and reorientation. D/w covering RIGGER THIRD, order for b/l soft limbs
obtained for pt safety, placed with positive effect. Pt placed on a turning schedule. See restraints flowsheet for full assessment.
[2024-11-09] MEDS: ZOSYN 50 IV ×4 (04:44→22:22)
[2024-11-09] MEDS: HEPARIN 5000 UNITS SC ×2 (09:08→15:20)
--- NOTE | 2024-11-09 10:00 | W.PN.HOSP.TC ---
Today's Communication/Plan
-
Start heparin drip without a bolus with cautious monitoring of hemoglobin as well as any signs of clinical bleeding
IV fluids
Follow labs this morning
X-ray of the abdomen
Continue antibiotics
Pain control-continue BOTTOM BRUSHER for now for severe pain
Consider discontinuing BOTTOM BRUSHER as soon as we can as this can affect the progression of her bowel obstruction
Assessment / Plan
Assessment / Plan
89-year-old female with abdominal pain and distention. No bowel movements in the past few days
CT abdomen and [id number] small bowel obstruction. Free fluid in all 4 quadrants. No free air. Moderate right pleural effusion and small left pleural effusion. Adjacent atelectasis of the lower lungs. Fusiform bronchiectasis in the
anterior aspect of the right lower lobe. Cholelithiasis. No findings to suggest acute cholecystitis. Patchy areas of decreased enhancement scattered throughout both kidneys suspicious for multiple bilateral renal infarcts with differential of
pyelonephritis. Bilateral hypodense and simple renal cyst. Dense vascular calcification with no evidence of abdominal aortic aneurysm.
Echo 05/09/2024-moderately reduced LV systolic function. EF 35 to 40%. Global hypokinesis. Stage II diastolic dysfunction. Severe central MR. Severe versus pseudo severe aortic stenosis. Mild TR. Moderately elevated PA systolic pressure. CT-
11/08/2024-diffuse atherosclerotic disease. Short segment occlusion of the left SFA within the thigh. Findings compatible with persistent small bowel obstruction. Oral contrast has not yet passed to be beyond the transition point. Free fluid.
Patchy enhancement of both kidneys possibly embolic shower
Comfortable
Cardiovascular system S1-S2 appreciated, short systolic murmur at aortic area and apex
Chest decreased breath sounds bilaterally
Abdomen distended, no bowel sounds appreciated, tenderness and guarding present in the mid abdomen area
No pedal edema
Denies any pain this morning-on Dilaudid BOTTOM BRUSHER.
# High-grade small bowel obstruction
NG tube decompression
Continue n.p.o.
Zosyn because of elevated white count
Blood cultures negative
Abdomen X ray pending
Surgery will discuss with patient's daughter today
Family doesn't want surgery.
We discussed that conservative management may or may not get her improved with high-grade small bowel obstruction. She also has lactic acidosis as well . Possible ischemic bowel need to be ruled out as well.
I reviewed with her that CT from yesterday afternoon also showed small bowel obstruction
Daughter aware that this may or may not get better with conservative measures
# Bleeding from NG tube yesterday was likely trauma from insertion or due to small bowel obstruction-seem to have gotten better. At this point she has multiple reasons to be on heparin drip therefore I will started and cautiously watch. Continue
PPI twice daily. If hemoglobin drops or bleeding restarts will discontinue heparin drip
# Ischemic foot on the right side-vascular surgery evaluation appreciated. Surgical options were discussed by vascular. Family wanted to hold off on any surgery at this point. She will be high risk for surgery. Dilaudid BOTTOM BRUSHER was started for pain
control which seems to be working well.
# Acute hypoxic respiratory insufficiency-was likely secondary to pain versus atelectasis. Off oxygen now
# Lactic acidosis-follow. Gentle IVF to be continued. Increase IV fluid rate to 60 mL/h. Patient is also getting KVO 40 mL/h with BOTTOM BRUSHER
#Chronic HFrEF
I do not see any evidence of decompensation at present
She is n.p.o. and hypotensive and has lactic acidosis-IV fluids ordered
Lasix discontinued yesterday
Monitor daily weights
Cardiology consulted
# Severe aortic stenosis-patient did not want to get surgery in the past
# Severe mitral regurgitation
# Coronary artery calcifications
# Anemia-likely secondary to CKD
# NILS on CKD stage III- SINAN also possible. Increase IV fluids. Follow creatinine
# Abnormal kidneys-infarcts versus less likely infection-heparin drip started .continue Antibiotics. IV fluids
# Elevated troponin likely nonischemic myocardial injury in the setting Of SBO
# Paroxysmal Atrial Fibrillation - Hold Eliquis in case patient needs surgery patient does not seem to be on rate controlling agents as outpatient. Start heparin drip
# Hypertension-Hold Lisinopril
# Chronically elevated LFTs-refused outpatient testing by PCP
# Bronchiectasis
# Cholelithiasis
# Moderate Protein Calorie Malnutrition
# Hypoalbuminemia
# Smoker-Cessation Counseling
# DVT prophylaxis- Heparin
# DNR status
Discussed with nursing
Discussed with daughter in detail over the phone.
Discussed with surgeon
Discussed with vascular
She is aware that has many medical problems at this point. Discussed that at this point she requires 2 major surgeries and patient is at high risk for surgical procedures. Family wants to hold off on any any surgical procedures. Options
discussed. Family at this point wants to keep with medical treatment and conservative measures and see how she responds. Daughter is aware that she may not get better with these measures. Discussed about starting heparin drip and risks of
bleeding and that we are cautiously monitoring once she is started on this. Reasoning discussed. She is agreeable to proceed. She wants to hold off on hospice at this point and see how mom responds to conservative measures.
Prognosis guarded at the best.
Time spent over 55 min
Part of this note was created using voice recognition system. Occasional wrong word or��sound alike� substitutions may have inadvertently occurred due to the inherent limitations of voice recognition software. If noted kindly bring it to my
attention for correction.
Anticipated Discharge: > 48 hours
Subjective/Interval History
-
Date of Service: November 09, 2024
Objective Data
-
Labs:
Laboratory Results
11/09/24
09:46
WBC Pending
Hgb Pending
Hct Pending
Plt Count Pending
Sodium Pending
Potassium Pending
Chloride Pending
Carbon Dioxide Pending
BUN Pending
Creatinine Pending
Glucose Pending
Calcium Pending
Vital Signs:
Vital Signs
Temp Pulse Resp BP Pulse Ox
97.7 F 87 14 135/54 93
11/09/24 08:59 11/09/24 08:59 11/09/24 08:59 11/09/24 08:59 11/09/24 09:36
I&O
11/08/24 11/09/24 11/10/24
06:59 06:59 06:59
Intake Total 150 / 150 130 / 130 580 / 580
Output Total 500 / 500 300 / 300 150 / 150
Balance -350 / -350 -170 / -170 430 / 430
[2024-11-09 10:51] LABS: APTT 56.4 Sec (23.4-35.0)
[2024-11-09 11:00] LABS: Lactic Acid 1.2 mmol/L (0.7-2.0)
[2024-11-09 11:21] LABS: Hematocrit 24.6 % (37.0-47.0); Mean Corp Hgb Conc. 32.5 g/dL (33.0-37.0); Mean Corpuscular Hgb 26.4 pg (27.0-31.0); Mean Corpuscular Volume 81.2 fL (81.0-99.0); Mean Platelet Volume 11.3 fL (7.4-10.4); Platelet Count 207 10^3/uL (130-400); Red Blood Cell Count 3.03 10^6/uL (4.20-5.40); Red Cell Dist. Width 17.4 % (11.5-14.5); White Blood Cell Count 12.9 10^3/uL (4.8-10.8)
--- NOTE | 2024-11-09 11:28 | W.PN.GS2 ---
Today's Communication / Plan
-
Family discussion for GOC
Assessment / Plan
-
89F with SBO and RLE ischemia who is not desirous of surgical intervention
Lack of improvement and clinical decline is noted
Spoke with daughter by phone and explained in my opinion this will not be a survivable event. Expressed my concerns regarding her pain and advised comfort measures. Daughter wishes to come see her now and will discuss with patient.
Pending family discussion re: GOC
Rec comfort care
Pls call with ?s
Subjective Data
-
Date of Service: November 09, 2024
Moaning in pain from her RLE, denies passing flatus or BM
Objective Data
-
Intake and Output
11/08/24 11/09/24 11/10/24
06:59 06:59 06:59
Intake Total 150 / 150 130 / 130 580 / 580
Output Total 500 / 500 300 / 300 150 / 150
Balance -350 / -350 -170 / -170 430 / 430
Intake:
IV fluids (Total) 480 / 480
IV piggybacks 150 / 150 100 / 100 100 / 100
Amount instilled into GI Tube ( 30 / 30 0 / 0
Total)
[place] Sump 30 / 30 0 / 0
Output:
Gastrointestinal tube output ( 500 / 500 300 / 300 150 / 150
Total)
[place] Sump 300 / 300 150 / 150
Other:
Number of approximated SMALL 1 1
amounts of urine
Number of approximated MODERATE 1 1
amounts of urine
How many times incontinent 1
MODERATE amount urine
How many times incontinent 1
SATURATED amount urine
Vital Signs
Temp Pulse Resp BP Pulse Ox
97.6 F 78 14 137/46 91
11/09/24 10:57 11/09/24 10:57 11/09/24 10:57 11/09/24 10:57 11/09/24 10:57
Lab Results
11/09/24 10:32
Calcium 8.6 mg/dl (8.4-10.2) 11/08/24 07:15
Magnesium 1.9 mg/dl (1.6-2.3) 11/08/24 07:15
Total Bilirubin 2.8 mg/dl (0.2-1.3) H 11/08/24 07:15
Direct Bilirubin 1.6 mg/dl (0.0-0.4) H 11/08/24 07:15
AST 22 U/L (14-36) 11/08/24 07:15
ALT 16 U/L (0-35) 11/08/24 07:15
Alkaline Phosphatase 221 U/L (38-126) H 11/08/24 07:15
Total Protein 6.0 g/dl (6.3-8.2) L 11/08/24 07:15
Albumin 2.6 g/dl (3.5-5.0) L 11/08/24 07:15
Physical Exam
-
Gen: mild distress
Abd: soft, distended, exquisitely ttp diffusely, burgundy NGT output
--- NOTE | 2024-11-09 11:31 | W.PN.UPDATE ---
Update Note
Progress Note Update
Hold off on heparin drip for now as per surgery discussion with the daughter they might be looking for comfort care. Hemoglobin is also 8.0.
[2024-11-09 11:50] LABS: Blood Urea Nitrogen 74 mg/dl (7-17); Calcium 7.6 mg/dl (8.4-10.2); Carbon Dioxide 29 mmol/L (22-30); Chloride 100 mmol/L (98-107); Estimated Creatinine Clearance 10 ml/min; Glucose 153 mg/dl (70-99); Potassium 4.4 mmol/L (3.5-5.1); Sodium 136 mmol/L (135-145); eGFR 18.16
[2024-11-09] MEDS: NSS (PRESERVATIVE FREE) 10 ML IV ×2 (12:42→20:35)
[2024-11-09] MEDS: PROTONIX IV 40 MG IV ×2 (12:43→20:35)
--- NOTE | 2024-11-09 14:51 | W.PN.UPDATE ---
Addendum entered and electronically signed by Cierra Alarcon MD 11/09/24 14:55:
more than 50 min today
Original Note:
Update Note
Progress Note Update
met with daughter in person.
She wants to talk to hospice before she makes a decision.
Consult placed
[2024-11-09] MEDS: D5/0.45%NACL 1000 IV (15:20)
--- NOTE | 2024-11-09 17:13 | W.PN.CD ---
Addendum entered and electronically signed by Oliver Sanches MD 11/09/24 18:30:
I saw and examined the patient.
The SALES DRIVER's note was reviewed and I agree with the note.
Patient comfortable sleeping 2 L nasal cannula respiratory status appears stable. Continue to monitor volume status.
Deferred to hospitalist regarding anemia, SBO and ischemic foot
As per hospitalist note patient started had discussion with hospice.
Original Note:
Today's Communication / Plan
-
Does not seem to need lasix today- monitor volume
there is discussion for hospice on my review of notes
Impression / Plan
-
I/P: 89F with HFrEF (EF 35-40%), paroxysmal atrial fibrillation (on apixaban), severe aortic stenosis, severe mitral regurgitation, HTN, CKD stage III, HLD, current smoker, and OA who presented to the ER with a chief complaint of shortness of
breath. Has SBO and ischemic right foot.
Primary Popcorn Attendant: Dr. Bonds
Ischemic foot:
-per vascular: Extensive multilevel calcified arterial disease-aortoiliac, common femoral, SFA/pop, tibial. cannot identify flow into the foot on CTA on the right.
-note reviewed- not planning surgery, pain management and GOC convo
-hospice is consulted
SBO:
-surgery is on the case, but GOC discussion was recommended- see above
-NGT in place
HFrEF (EF 35-40 %), chronic- does not appear volume overloaded today
-With severe valvular heart disease ( and MR)
-Conservative cardiac management-patient does not want any invasive procedures.
-does not seem to need IV lasix today based on weight and assessment.
-Further GDMT limited by renal dysfunction.
-remains on O2 by NC
NILS on CKD, follow
Paroxysmal atrial fibrillation
-Beta remedios stopped as an outpatient due to fatigue
-Oral Anticoagulation: Apixaban 2.5mg BID (age > 80, weight < 60kg) ON HOLD
-[id number]: score at least 5 (Heart failure, HTN, age 75 or more, female gender)
Hypertension:
-follow
Abnormal troponin, likely nonischemic myocardial injury in the setting of acute illness
-0.136 peak
-Chest pain free
Patient denies any CP or palps. Breathing okay per patient. She is resting comfortably at the time of my assessment. Family at bedside.
Physical Exam
Vital Signs/Labs
Vital Signs
Temp Pulse Resp BP Pulse Ox
97.8 F 93 16 106/59 99
11/09/24 14:54 11/09/24 14:54 11/09/24 16:00 11/09/24 14:54 11/09/24 17:05
11/08/24 11/09/24 11/10/24
06:59 06:59 06:59
Actual Weight 44.65 kg 41.186 kg
11/09/24 10:32
11/09/24 10:32
APTT 56.4 Sec (23.4-35.0) H 11/09/24 10:32
Magnesium 1.9 mg/dl (1.6-2.3) 11/08/24 07:15
11/07/24
15:07
Uga-Z-Dtggqfageic Pept > 92575
LAB Results
11/07/24 11/07/24 11/08/24
15:07 22:45 07:15
Troponin I 0.099 H* 0.124 H* D 0.136 H*
11/08/24
12:56
Troponin I 0.131 H*
Physical Exam
Constitutional: No acute distress
EENT: Anicteric
Cardiovascular: Rhythm & rate is regular
Respiratory: Respiratory effort normal, Wheeze Absent, Crackles Absent, Rhonchi Absent and Other (on O2 by NC)
Neuro/Psych: Alert and Oriented
Data Reviewed
-
Date of Service: November 09, 2024
EKG: Other (SR)
Labs: Labs Reviewed by me
[2024-11-10] MEDS: HEPARIN 5000 UNITS SC ×2 (00:44→08:19)
[2024-11-10 03:00] VITALS: BP 130/53
--- NOTE | 2024-11-10 03:44 | PTCARENOTE ---
Upon rounds, NGT tube next to pt. Pt self removed. Output so far < 100 mL. GENETICS NURSE covering house contacted w/findings. NGT not reinserted at this time. Abd round, tender to palp. Call [facility] w/in reach.
[2024-11-10] MEDS: ZOSYN 50 IV ×2 (03:58→10:32)
[2024-11-10] MEDS: D5/0.45%NACL 1000 IV (05:49)
[2024-11-10 05:57] VITALS: BMI 17.6
[2024-11-10 07:52] LABS: Blood Urea Nitrogen 73 mg/dl (7-17); Carbon Dioxide 28 mmol/L (22-30); Chloride 101 mmol/L (98-107); Estimated Creatinine Clearance 10 ml/min; Glucose 140 mg/dl (70-99); Potassium 3.7 mmol/L (3.5-5.1); Sodium 137 mmol/L (135-145); eGFR 16.56
[2024-11-10 08:00] VITALS: BP 123/54
[2024-11-10 08:11] LABS: Hematocrit 22.2 % (37.0-47.0); Hemoglobin 7.1 g/dL (12.0-16.0); Mean Corpuscular Hgb 25.9 pg (27.0-31.0); Mean Platelet Volume 11.1 fL (7.4-10.4); Platelet Count 161 10^3/uL (130-400); Red Blood Cell Count 2.74 10^6/uL (4.20-5.40); White Blood Cell Count 10.7 10^3/uL (4.8-10.8)
[2024-11-10] MEDS: PROTONIX IV 40 MG IV (08:20)
[2024-11-10] MEDS: NSS (PRESERVATIVE FREE) 10 ML IV (08:21)
--- NOTE | 2024-11-10 08:47 | W.PN.SURGUPD ---
Surgical Update
Surgical Update
Chart reviewed. Case discussed with nursing. No flatus ro BM. Patient removed NGT again. No reports of worsening abdominal pain.
Agree with prior documentation that surgical intervention is very high risks and that this likely is unlikely a survivable event. Certainly would not entertain operative management without a trial of medical management and NGT decompression.
Recommend comfort measures.
--- NOTE | 2024-11-10 10:02 | HOSPNOTE ---
Patient will be signed onto hospice (inpatient) today. Daughter is on her way to the hospital, Admissions was called and Attending and CM aware of plan.
--- NOTE | 2024-11-10 10:14 | W.PN.HOSP.TC ---
Today's Communication/Plan
-
Hospice
Assessment / Plan
Assessment / Plan
89-year-old female with abdominal pain and distention. No bowel movements in the past few days
CT abdomen and vrcqqq-tyft-synxq small bowel obstruction. Free fluid in all 4 quadrants. No free air. Moderate right pleural effusion and small left pleural effusion. Adjacent atelectasis of the lower lungs. Fusiform bronchiectasis in the
anterior aspect of the right lower lobe. Cholelithiasis. No findings to suggest acute cholecystitis. Patchy areas of decreased enhancement scattered throughout both kidneys suspicious for multiple bilateral renal infarcts with differential of
pyelonephritis. Bilateral hypodense and simple renal cyst. Dense vascular calcification with no evidence of abdominal aortic aneurysm.
Echo 05/09/2024-moderately reduced LV systolic function. EF 35 to 40%. Global hypokinesis. Stage II diastolic dysfunction. Severe central MR. Severe versus pseudo severe aortic stenosis. Mild TR. Moderately elevated PA systolic pressure. CT-
11/08/2024-diffuse atherosclerotic disease. Short segment occlusion of the left SFA within the thigh. Findings compatible with persistent small bowel obstruction. Oral contrast has not yet passed to be beyond the transition point. Free fluid.
Patchy enhancement of both kidneys possibly embolic shower
pain with movements
Cardiovascular system S1-S2 appreciated, short systolic murmur at aortic area and apex
Chest decreased breath sounds bilaterally
Abdomen distended, no bowel sounds appreciated, tenderness and guarding present in the mid abdomen area
No pedal edema
Cold right leg
She reiterates that she does not want any surgical procedures
# High-grade small bowel obstruction
She pulled out NG tube last night. Currently 100 mL out
Continue n.p.o.
Zosyn because of elevated white count
Blood cultures negative
Patient and family do not want surgery.
We discussed that conservative management may or may not get her improved with high-grade small bowel obstruction. She also has lactic acidosis as well . Possible ischemic bowel need to be ruled out as well.
Daughter aware that this may or may not get better with conservative measures
# Bleeding from NG tube yesterday and drop in hemoglobin. The plan was to start heparin drip on 11/09/2024 but daughter wanted hospice evaluation therefore held off. Also her hemoglobin was low therefore held heparin drip.
# Anemia-type unclear whether it is dilutional versus acute blood loss.
# Ischemic foot on the right side-vascular surgery evaluation appreciated. Surgical options were discussed by vascular. Family wanted to hold off on any surgery at this point. She will be high risk for surgery. Pain control. Per nursing patient
has not been using the ROAD SUPERVISOR much.
# Acute hypoxic respiratory insufficiency-was likely secondary to pain versus atelectasis. On oxygen
# Lactic acidosis-follow. Gentle IVF to be continued.
#Chronic HFrEF
I do not see any evidence of decompensation at present
She is n.p.o. and hypotensive and has lactic acidosis-IV fluids ordered
Lasix discontinued
# Severe aortic stenosis-patient did not want to get surgery in the past
# Severe mitral regurgitation
# Coronary artery calcifications
# Anemia-likely secondary to CKD
# NILS on CKD stage III- SINAN also possible. Increase IV fluids. Follow creatinine
# Abnormal kidneys-infarcts versus less likely infection
# Elevated troponin likely nonischemic myocardial injury in the setting Of SBO
# Paroxysmal Atrial Fibrillation - Hold Eliquis because of drop in hemoglobin and anemia and being n.p.o. Heparin drip was considered-see above
# Hypertension-Hold Lisinopril
# Chronically elevated LFTs-refused outpatient testing by PCP
# Bronchiectasis
# Cholelithiasis
# Moderate Protein Calorie Malnutrition
# Hypoalbuminemia
# Smoker-Cessation Counseling
# DVT prophylaxis- Heparin
# DNR status
Discussed with nursing
Hospice nurse met with patient's daughter.
Inpatient hospice planned for symptom management.
Once on hospice we will do Dilaudid as needed and drip if needed.
Time spent over 52 min
Part of this note was created using voice recognition system. Occasional wrong word or��sound alike� substitutions may have inadvertently occurred due to the inherent limitations of voice recognition software. If noted kindly bring it to my
attention for correction.
Anticipated Discharge: > 48 hours
Subjective/Interval History
-
Date of Service: November 10, 2024
Objective Data
-
Labs:
Laboratory Results
11/10/24
06:33
WBC 10.7
Hgb 7.1 L
Hct 22.2 L
Plt Count 161 D
Sodium 137
Potassium 3.7
Chloride 101
Carbon Dioxide 28
BUN 73 H
Creatinine 2.7 H
Glucose 140 H
Calcium 7.0 L
Vital Signs:
Vital Signs
Temp Pulse Resp BP Pulse Ox
97.9 F 83 18 123/54 97
11/10/24 08:00 11/10/24 08:00 11/10/24 08:00 11/10/24 08:00 11/10/24 08:36
I&O
11/09/24 11/10/24 11/11/24
06:59 06:59 06:59
Intake Total 130 / 130 1400 / 1400
Output Total 300 / 300 250 / 250
Balance -170 / -170 1150 / 1150
--- NOTE | 2024-11-10 11:18 | CM ---
Plan: transferred to Inpatient Hospice today
--- NOTE | 2024-11-10 14:02 | W.PN.UPDATE ---
Update Note
Progress Note Update
[facility]- [id number]
--- NOTE | 2024-11-10 14:48 | PTCARENOTE ---
Pt with orders for inpatient hospice. Discharged and readmitted under new chart.
--- NOTE | 2024-11-11 09:28 | W.HF.CON ---
Heart Failure
- LV Function
Left ventricular function study result: LV Ejection fraction 36-40%
Ejection Fraction Percentage: 35-40
- ARNI
Patient already on ARNI: No
Heart Failure ARNI Contraindication: Comfort Measures Only
- ACEI/ARB
Patient already on ACEI/ARB: No
Heart Failure ACEI/ARB Contraindication: Comfort Measures Only
- Beta Karen
Patient already on Evidence Based Beta Karen: No
Heart Failure Evidence Based Beta Karen: Comfort Measures Only
- Mineralocorticord Receptor Antagonist
Patient already on MRA: No
Heart Failure MRA Contraindication: Comfort Measures Only
- SGLT-2 Inhibitor
Patient already on SGLT-2 Inhibitor: No
Heart Failure SGLT-2 Inhibitor Contraindication: Comfort Measures
- Afib Anticoagulation
Patient already on Anticoagulation for Afib: No
Heart Failure Afib Anticoagulation Contraindication: Comfort Measures Only
- NYHA CHF Classification
NYHA CHF Classification Level: Class III - Symptoms w/ min exertion, interferes w/ nml daily activity
- ACC/AHA Stage
ACC/AHA Stage: Stage C: Symptomatic Heart Failure
== END 2024-11-10 14:51 | disposition hospice, inpatient (51) | DRG 291 ==
LOC: 1 ACUTE 22:22
PROVIDERS: Emergency Medicine; Nurse Practitioner Gerontology; Physician Assistant Medical; ADMITTING PHYSICIAN Hospitalist; ATTENDING PHYSICIAN Hospitalist; CONSULT PHYSICIAN Surgery Vascular Surgery; EMERGENCY PHYSICIAN Emergency Medicine; OTHER PHYSICIAN Internal Medicine; OTHER PHYSICIAN Surgery
DX: I13.0 Hypertensive heart and chronic kidney disease with heart failure and stage 1 through stage 4 chronic kidney disease, or unspecified chronic kidney disease (principal); I50.23 Acute on chronic systolic (congestive) heart failure; E44.0 Moderate protein-calorie malnutrition; E87.20 Acidosis, unspecified; N17.9 Acute kidney failure, unspecified; K56.609 Unspecified intestinal obstruction, unspecified as to partial versus complete obstruction; Z68.1 Body mass index [BMI] 19.9 or less, adult; N18.30 Chronic kidney disease, stage 3 unspecified; I08.0 Rheumatic disorders of both mitral and aortic valves; I25.10 Atherosclerotic heart disease of native coronary artery without angina pectoris; D63.1 Anemia in chronic kidney disease; I5A Non-ischemic myocardial injury (non-traumatic); Z79.01 Long term (current) use of anticoagulants; I48.0 Paroxysmal atrial fibrillation; J47.9 Bronchiectasis, uncomplicated; K80.20 Calculus of gallbladder without cholecystitis without obstruction; E88.09 Other disorders of plasma-protein metabolism, not elsewhere classified; F17.200 Nicotine dependence, unspecified, uncomplicated; Z66 Do not resuscitate; E78.00 Pure hypercholesterolemia, unspecified; G47.33 Obstructive sleep apnea (adult) (pediatric); G89.29 Other chronic pain; M54.50 Low back pain, unspecified; I73.9 Peripheral vascular disease, unspecified; Z79.899 Other long term (current) drug therapy; Z90.710 Acquired absence of both cervix and uterus
CPT/HCPCS: 71045; 74018; 74022; 74177; 75635; 80048; 80053; 82248; 83036; 83605; 83735; 83880; 84484; 85025; 85027; 85730; 87040; 93005; 99291; 99406; Q9967

== ENCOUNTER 2024-11-10 14:53 | Inpatient (IN) | payer OTHER, SELFPAY ==
[2024-11-10] MEDS: DILAUDID 1 MG IV ×2 (15:59→22:11)
[2024-11-10 17:08] VITALS: BP 124/52
--- NOTE | 2024-11-10 17:38 | PTCARENOTE ---
yuliana pt from 1 acute, via bed, vitals taken, daughter at bedside, wondering if she can have Lobster tail for dinner, double checked with DR Eller and she said ok, educated family that the choice might give her pain, but we have PRN medications
to give.
[2024-11-10] MEDS: ZOFRAN 4 MG IV (20:11)
[2024-11-10 21:16] VITALS: BP 99/53
[2024-11-10] MEDS: ATIVAN 1 MG IV (22:11)
[2024-11-10] MEDS: NSS (PRESERVATIVE FREE) 0.5 ML IV (22:12)
[2024-11-11] MEDS: DILAUDID 1 MG IV ×2 (05:36→08:10)
[2024-11-11 07:00] VITALS: BP 83/41
[2024-11-11] MEDS: ATIVAN 1 MG IV (08:11)
[2024-11-11] MEDS: NSS (PRESERVATIVE FREE) 0.5 ML IV (08:11)
--- NOTE | 2024-11-11 10:22 | W.PN.DEATH ---
Addendum entered and electronically signed by Cierra Alarcon MD 11/11/24 15:58:
Dictation- [id number]
Original Note:
Pronouncement of
-
Called to see patient to pronounce.
No spontaneous heart tones or respirations noted.
Patient not responsive to verbal stimuli.
Patient is pronounced .
Time of : 09:46
Date of : 11/11/24
Cause of : Small Bowel Obstruction.
Family Notified: Yes (at bed side)
--- NOTE | 2024-11-11 10:23 | W.PN.UPDATE ---
Update Note
Progress Note Update
Called to pronounce the patient as she passed. Daughter came in with grandchildren. Discussed with her and emotional support offered.
Discussed with nursing and home hospice aide at bed side
--- NOTE | 2024-11-11 11:18 | HOSPNOTE ---
Patient peacefully, I was present with patient. Daughter was called and is here now with family. Emotional support provided. Attending was in to pronounce. [facility] will be called when family is ready.
--- NOTE | 2024-11-11 14:42 | W.PN.DEATH ---
Pronouncement of
-
Called to see patient to pronounce.
No spontaneous heart tones or respirations noted.
Patient not responsive to verbal stimuli.
Patient is pronounced .
Time of : 09:46
Date of : 11/11/24
Cause of : Small Bowel obstruction
Family Notified: Yes (at bed side)
== END 2024-11-11 14:06 | disposition expired | DRG 951 ==
LOC: 2 NORTH 14:53
PROVIDERS: ADMITTING PHYSICIAN Hospitalist
DX: Z51.5 Encounter for palliative care (principal); K56.609 Unspecified intestinal obstruction, unspecified as to partial versus complete obstruction; E87.20 Acidosis, unspecified; N17.9 Acute kidney failure, unspecified; E44.0 Moderate protein-calorie malnutrition; I13.0 Hypertensive heart and chronic kidney disease with heart failure and stage 1 through stage 4 chronic kidney disease, or unspecified chronic kidney disease; I50.22 Chronic systolic (congestive) heart failure; I99.8 Other disorder of circulatory system; I35.0 Nonrheumatic aortic (valve) stenosis; D64.9 Anemia, unspecified; F17.200 Nicotine dependence, unspecified, uncomplicated; E88.09 Other disorders of plasma-protein metabolism, not elsewhere classified; I25.10 Atherosclerotic heart disease of native coronary artery without angina pectoris; N18.30 Chronic kidney disease, stage 3 unspecified; I48.0 Paroxysmal atrial fibrillation; J47.9 Bronchiectasis, uncomplicated